=== PATIENT | male | born 1945 | race Caucasian/White ===

== ENCOUNTER 2019-06-09 21:55 | Inpatient (IN) | payer OTHER, SELFPAY ==
[2019-06-09 22:05] VITALS: BP 197/90; PULSE 81; RESP 19; TEMP 36.3; O2SAT 97; BMI 30.9
[2019-06-09 22:30] VITALS: BP 149/70; PULSE 80; RESP 18; O2SAT 99
[2019-06-09 22:39] LABS: Add Manual Diff / Slide Review NO; Basophils Absolute Auto 100 /uL (0-100); Basophils Percent Auto 1.6 % (0-2); Eosinophils Absolute Auto 0 /uL (0-450); Eosinophils Percent Auto 0.1 % (2-4); Hematocrit 39.4 % (41-53); Hemoglobin 13.3 g/dL (13.5-17.5); Lymphocytes Absolute Auto 300 /uL (1100-4500); Lymphocytes Percent Auto 4.4 % (25-40); Mean Corpuscular HGB Conc 33.7 % (30-36); Mean Corpuscular Hemoglobin 31.6 PG (26-34); Mean Corpuscular Volume 93.7 fL (80-100); Monocytes Absolute Auto 600 /uL (0-900); Monocytes Percent Auto 7.2 % (3-14); Neutrophils Absolute Auto 6800 /uL (1500-7000); Neutrophils Percent Auto 86.7 % (50-75); Platelet Count 226 X10^3/uL (150-400); Red Cell Distribution Width 13.4 % (11.6-14.8); White Blood Cell Count 7.8 X10^3/uL (4.5-11.0)
--- NOTE | 2019-06-09 22:41 | DI.RAD.S_ITS ---
PROCEDURE: XR ABDOMEN MIN 2V INDICATIONS: severe pain, bloating, known diverticulitis TECHNIQUE: 2 views of the abdomen were acquired. COMPARISON: [facility], CT, CT ABDOMEN PELVIS W CON, 06/09/2019, 23:35. FINDINGS: Surgical changes and devices: AICD and sternotomy wires partially visualized Scattered air-fluid levels are present. There are some prominent loops of bowel measuring up to 5.3 cm. No specific transition point seen. There is at least moderate stool Soft tissues: No masses; visualized solid organ contours appear normal in size. No suspicious abdominal calcifications. Diffuse spondylosis. Bilateral hip joint degeneration. IMPRESSION: Scattered air-fluid levels and mild gaseous distention of some bowel loops measuring up to 5 cm. No specific transition point. If the patient's symptoms do not improve, continued surveillance with abdominal series radiographs could be performed. Dictated by: Gregory Bravo M.D. on 06/10/2019 at 8:46 Approved by: Gregory Bravo M.D. on 06/10/2019 at 8:49
[2019-06-09 22:42] LABS: INR 1.4 (0.9-1.3); Prothrombin Time 16.7 SECONDS (10.1-12.7)
[2019-06-09 22:45] LABS: PTT Partial Thromboplastin Tim 29 SECONDS (26.4-36.2)
[2019-06-09 22:46] LABS: Alanine Aminotransferase 21 IU/L (<50); Albumin 3.4 g/dL (3.5-5.0); Alkaline Phosphatase 87 U/L (38-126); Aspartate Aminotransferase 32 IU/L (17-59); BUN Creatinine Ratio 17.7 (6-22); Bilirubin Total 0.7 mg/dL (0.2-1.3); Blood Urea Nitrogen 23 mg/dL (9-20); Calcium 8.3 mg/dL (8.4-10.2); Carbon Dioxide 24 mmol/L (22-32); Chloride 100 mmol/L (98-107); Estimated Glomerular Filt Rate 54.3 mL/min (>60); Globulin 3.3 g/dL (1.7-4.1); Glucose 307 mg/dL (80-110); HEMOLYSIS < 15 (0-50); Lipase 116 U/L (23-300); Sodium 135 mmol/L (137-145); Total Protein 6.7 g/dL (6.3-8.2)
[2019-06-09] MEDS: HYDROMORPHONE 0.5 MG INJ IV ×2 (22:49→23:13)
[2019-06-09] MEDS: SODIUM CHLORIDE 0.9% 1,000 ML 150 ML IV (22:49)
[2019-06-09] MEDS: ONDANSETRON 4 MG/2 ML INJ IV (22:49)
--- NOTE | 2019-06-09 23:33 | DI.CT.S_ITS ---
PROCEDURE: CT ABDOMEN PELVIS W CON INDICATIONS: severe pain, distension TECHNIQUE: After the administration of intravenous contrast, 5 mm thick sections acquired from the diaphragm to the symphysis. 5 mm coronal and sagittal reformats were acquired. For radiation dose reduction, the following was used: automated exposure control, adjustment of mA and/or kV according to patient size. COMPARISON: [facility], CT, CT ABDOMEN PELVIS WITH CONTRAST, 06/06/2019, 1:06. FINDINGS: Image quality: Excellent. ABDOMEN: Lung bases: Lung bases are clear. Heart size is normal. Coronary artery calcifications. Solid organs: Liver is normal in size and enhancement. Gallbladder is unremarkable. Biliary system is non dilated. Pancreas enhances normally. Spleen is normal in size and enhancement. No adrenal nodules. Kidneys demonstrate normal size and enhancement, without hydronephrosis. Peritoneum and bowel: The previous spherical structure in the left mid to lower abdomen, which previously had a large amount of feculent material has now changed to a predominantly fluid-filled structure with extensive surrounding inflammatory change. It measures approximately 4.5 cm. Findings are consistent with acute diverticulitis of a very large jejunal diverticulum. Some thickening of the wall of the adjacent distal left colon and proximal sigmoid colon has developed secondary to adjacent inflammatory change. There is now a small amount of free fluid. No free air. A second large jejunal diverticulum is also again identified. Scattered sigmoid diverticuli. Nodes and vessels: No retroperitoneal or mesenteric adenopathy by size criteria. Aorta and inferior vena cava are normal in size. Extensive atherosclerotic calcifications. Miscellaneous: No ventral hernias. PELVIS: Genitourinary: Bladder wall thickness is normal. Miscellaneous: No inguinal hernias or adenopathy. Bones: No suspicious bony lesions. No vertebral body compression fractures. IMPRESSION: 1. Interval liquefaction of feculent material within what appears to be a very large jejunal diverticulum, with significant progression of surrounding inflammatory change and development of mild ascites. Findings are consistent with jejunal diverticulitis. 2. Coronary artery disease, peripheral atherosclerosis. Comment: Final report is concordant with preliminary interpretation provided by [facility]. Dictated by: Vinod Handley M.D. on 06/10/2019 at 7:38 Approved by: Vinod Handley M.D. on 06/10/2019 at 7:51
[2019-06-09 23:40] VITALS: BP 171/81; PULSE 94; RESP 17; O2SAT 98
[2019-06-09] MEDS: LIDOCAINE 1% (PF) 2 ML (23:40)
[2019-06-10] VITALS (31 sets, daily range): BP systolic 100–194; BP diastolic 58–84; PULSE 84–108; RESP 16–24; TEMP 36.4–37.8; O2SAT 90–99; BMI 30.4; BMI 30.8
--- NOTE | 2019-06-10 | PATH_ITS ---
[facility] Accession Number: [id number] . 01 Material submitted: . small bowel - PORTION SMALL BOWEL . 02 Diagnosis: Small Bowel, Segmental Resection: Segment of small bowel with the following features: Two diverticula lined with small bowel-type mucosa. Patchy mucosal ischemic changes and ulcers involving one of two diverticula. Marked serositis, consistent with perforation. Negative for dysplasia or malignancy. MRV 06/15/2019 1412 Local . 02 Electronically signed: . Miguel Beauchamp MD, PhD, Pathologist NPI- [id number] . 01 Gross description: . Received in formalin, labeled portion small bowel, is an unoriented segment of small bowel (length-13.3 cm, resection margin #1 diameter-4.2 cm, resection margin #2 diameter-3.5 cm) with attached mesentery (up to 2.5 cm in depth). The resection margins are received stapled. The serosa is parsons-pink and predominantly covered in parsons-chiu flaky friable exudate. The mucosa is chiu with normal folds and contains a diverticulum (3.5 x 2.5 x 2.5 cm) located 38 cm from resection margin #1 and 9.2 cm from resection margin #2. A second diverticulum (4.5 x 3.5 x 2.5 cm) is identified 7.5 cm from the first diverticulum and 3.5 cm from resection margin #2. The second diverticulum is perforated. No nodules or masses are identified. The resection margins are inked blue. Section code: (A1) resection margin #1, longitudinal union contract representative; (A2) resection margin #2, longitudinal union contract representative; (A3) union contract representative serial section between resection margin #1 and the first diverticulum, adjacent to the diverticulum; (A4-A7) diverticulum #1, union contract representative; (A8) union contract representative serial section between the diverticula, adjacent to the second diverticulum; (A9-A12) diverticulum #2, union contract representative; (A13) union contract representative serial section between the second diverticulum and resection margin #2, adjacent to the diverticulum. ([id number]) /MRV 06/12/2019 0849 Local . 02 Pathologist provided ICD-10: K63.1, K57.00, K65.9 . 02 CPT . 732438 Performed at: 01 [facility] [address] [place] [address], [place], [place] [id number] MD Wilton Quispe MD Phone: [phone] Performed at: 02 [facility] [address] [place] [id number] MD Emy Garza MD Phone: [phone]
--- NOTE | 2019-06-10 00:16 | PC.NURSE ---
1. Pt's medication reconciled to the best of my ability. Pt / do not know medications. [facility] records are incomplete. agrees to bring home meds to hospital at earliest convenience to compare. 2. On CT, bladder is very distended. Pt states he does not feel as if he needs to void. Dr. You ordered porter cath for acute urinary retention.
[2019-06-10] MEDS: HYDROMORPHONE 0.5 MG INJ IV ×2 (00:18→06:13)
[2019-06-10] MEDS: LIDOCAINE 2% (UROJET) 5 ML GEL TOP (00:29)
--- NOTE | 2019-06-10 00:40 | PC.NURSE ---
upon porter placement 750 cc of medium color urine out.
[2019-06-10 00:55] LABS: RBC Urine 0-1/HPF (0-5/HPF)
[2019-06-10 00:56] LABS: Amorphous Sediment Urine 1+; Bacteria Urine Occasional (0-1); Granular Casts Urine 0-1/LPF; Hyaline Casts Urine 1-5/LPF; Squamous Epithelial Cell Urine 0-1 /HPF (0-5/HPF); WBC Urine 0-1/HPF (0-5/HPF)
[2019-06-10 00:57] LABS: Culture Indicated Urine Specimen Cultured
[2019-06-10] MEDS: PIPERACILLIN-TAZO 4.5 GM/100 ML FROZ.PIGGY IV ×4 (01:04→17:16)
--- NOTE | 2019-06-10 01:57 | ED_ITS ---
HPI - Abdominal Pain General Chief Complaint: Abdominal Pain Stated Complaint: Lower Abd Pain Time Seen by Provider: 06/09/19 22:02 Source: patient and family Mode of arrival: Wheelchair Limitations: no limitations History of Present Illness HPI narrative: 74-year-old male nonsmoker with extensive cardiac history pr esents with his in the chief complaint of a sudden onset severe abdominal pain with distention and nausea this afternoon. Patient had been admitted over the course of the weekend at an outside facility with a diagnosis of diverticulitis. He had been taking Levaquin and Flagyl as he was while in the hospital and was slowly advancing his diet. He denies any chest pain or shortness of breath. He is not dizzy nor weak or lightheaded. His pain is severe and worsens with motion and improves with rest. He denies any dysuria, frequency or urgency. He admits to passing gas and had a bowel movement this morning. MD complaint: abdominal pain Onset (ago): hour(s) Pain Consistency: constant Location: diffuse Severity: severe Quality: cramping, stabbing and sharp Radiation: none Relieving factors: rest Exacerbating factors: movement Context: recent antibiotic use Related Data Home Medications Medication Instructions Recorded Confirmed atorvastatin 40 mg PO DAILY 06/09/19 06/09/19 levothyroxine 75 mcg PO QAM 06/09/19 06/09/19 metoprolol succinate 50 mg PO DAILY 06/09/19 06/09/19 insulin glargine 20 unit SUBCUT BEDTIME 06/10/19 06/10/19 insulin lispro 0 - 12 unit SUBCUT TID 06/10/19 06/10/19 insulin lispro 0 - 5 unit SUBCUT BEDTIME 06/10/19 06/10/19 levofloxacin [Levaquin] 500 mg PO DAILY 06/10/19 06/10/19 metronidazole [Flagyl] 500 mg PO TID 06/10/19 06/10/19 Allergies Allergy/AdvReac Type Severity Reaction Status Date / Time amiodarone Allergy Verified 06/09/19 22:09 Review of Systems Constitutional Constitutional: Denies chills, Denies fatigue, Denies fever(s), Denies frequent falls, Denies lethargy and Denies weakness Eyes Eyes: Denies change in vision, Denies eye discharge, Denies irritation and Denies loss of vision ENT Ears, Nose, Mouth, and Throat: Denies change in voice, Denies dizziness, Denies neck pain, Denies sore throat and Denies throat swelling Cardiovascular Cardiovascular: Denies chest pain, Denies irregular heart rhythm, Denies ligh theadedness, Denies palpitations, Denies dyspnea, Denies dyspnea on exertion and Denies orthopnea Respiratory Respiratory: Denies cough, Denies dyspnea, Denies dyspnea on exertion and Denies wheezing Gastrointestinal Gastrointestinal: Reports abdominal pain, Denies change in bowel habits, Denies diarrhea, Denies nausea and Denies vomiting Genitourinary Genitourinary: Denies hematuria, Denies flank pain, Denies urinary incontinence and Denies urinary urgency Musculoskeletal Musculoskeletal: Denies back pain, Denies muscle weakness, Denies neck pain, Denies numbness and Denies tingling Integumentary/Breasts Skin/Breast: Denies pruritus, Denies erythema, Denies rash and Denies wounds Neurologic Neurologic: Denies behavioral changes, Denies confusion, Denies dizziness, Denies frequent falls, Denies loss of vision, Denies numbness, Denies tingling and Denies weakness Psychiatric Psychiatric: Denies anxiety, Denies behavioral changes, Denies confusion, Denies depression, Denies homicidal ideation and Denies suicidal ideation Endocrine Endocrine: Denies fatigue, Denies flushing and Denies palpitations Hematologic/Lymphatic Hematologic/Lymphatic: Denies easy bruising Allergic/Immunologic Allergic/Immunologic: Denies urticaria, Denies throat swelling and Denies wheezing Patient History Medical History Diabetes (Acute) High cholesterol (Acute) Hypertension (Acute) Hypothyroid (Acute) Presence of combination internal cardiac defibrillator (ICD) and pacemaker (Acute 07/10/15) Stage 3 chronic kidney disease (Acute) Social History household members: spouse Smoking Status: Never smoker Smoking Status: Never smoker alcohol intake frequency: a few times a week Substance Use Type: does not use Exam Narrative Exam Narrative: GENERAL: [74] year old patient appears stated age. Well- nourished, well-developed patient, in mild distress. HEAD: Atraumatic. Normocephalic. EYES: Pupils equal round and reactive. Extraocular motions intact. No scleral icterus. No injection or drainage. ENT: Nose without bleeding, purulent drainage. Throat without erythema, tonsillar hypertrophy or exudate. Airway patent. NECK: Trachea midline. Non tender CARDIOVASCULAR: Regular rate and rhythm without murmurs, gallops, or rubs. RESPIRATORY: Clear to auscultation. Breath sounds equal bilaterally. No wheezes, rales, or rhonchi. GASTROINTESTINAL: Distended abdomen with decreased bowel sounds, quite tender to palpation in all 4 quadrants, peritoneal signs present EXTREMITIES: No edema or joint tenderness. BACK: Nontender without deformity or crepitance. No flank tenderness. NEURO: AOx3. SKIN: No rash or erythema of visible areas Initial Vital Signs Initial Vital Signs: Vital Signs Temperature 97.4 F L 06/09/19 22:05 Pulse Rate 81 06/09/19 22:05 Respiratory Rate 19 06/09/19 22:05 Blood Pressure 197/90 H 06/09/19 22:05 Pulse Oximetry 97 06/09/19 22:05 Course Course Course Narrative: Early call to on-call surgeon after palpation of a surgical abdomen. We discuss early evaluation and with very reassuring labs their request for CT is made. Orders Ordered: ED Orders 06/09/19 22:23 Complete Blood Count AUTO DIFF Stat Comprehensive Metabolic Panel Stat Lactate (Lactic Acid) Stat Lipase Stat Partial Thromboplastin Time Stat Prothrombin Time INR Stat 06/09/19 22:41 XR abdomen min 2V Stat 06/09/19 22:56 Blood Culture Stat 06/09/19 23:33 CT abdomen pelvis w con Stat 06/10/19 00:31 Urine Culture Stat Urine Microscopic Stat Hydromorphone HCl (Dilaudid) 0.5 mg IV Q4HR PRN PRN Reason: Pain, Severe (7-10) Sodium Chloride (Normal Saline 0.9%) 1,000 mls @ 125 mls/hr IV CONT BRIAN Ondansetron HCl (Zofran) 4 mg IV Q4HR PRN PRN Reason: Nausea And Vomiting Last Admin: 06/09/19 22:49 Dose: 4 mg Documented by: LEOBARDO Ondansetron HCl (Zofran) 4 mg IV Q4HR PRN PRN Reason: Nausea And Vomiting Discontinued Medications Hydromorphone HCl (Dilaudid) 0.5 mg IV NOW ONE Stop: 06/09/19 22:42 Last Admin: 06/09/19 22:49 Dose: 0.5 mg Documented by: LEOBARDO Hydromorphone HCl (Dilaudid) 0.5 mg IV NOW ONE Stop: 06/09/19 23:10 Last Admin: 06/09/19 23:13 Dose: 0.5 mg Documented by: LEOBARDO Hydromorphone HCl (Dilaudid) 0.5 mg IV NOW ONE Stop: 06/10/19 00:13 Last Admin: 06/10/19 00:18 Dose: 0.5 mg Documented by: LEOBARDO Sodium Chloride (Normal Saline 0.9%) 1,000 mls @ 150 mls/hr IV CONT BRIAN Last Infusion: 06/10/19 01:16 Dose: 150 mls/hr Documented by: Admin: 06/09/19 22:49 Dose: 150 mls/hr Documented by: LEOBARDO Piperacillin/Tazobactam/Dextrose (Zosyn) 4.5 gm in 100 mls @ 200 mls/hr IV NOW ONE Stop: 06/10/19 01:12 Last Infusion: 06/10/19 01:17 Dose: 200 mls/hr Documented by: Admin: 06/10/19 01:04 Dose: 200 mls/hr Documented by: LEOBARDO Insulin Human Regular (Humulin R) 5 unit SUBCUT NOW ONE Stop: 06/10/19 01:35 Lidocaine HCl (Urojet) 5 ml TOP NOW ONE Stop: 06/10/19 00:18 Last Admin: 06/10/19 00:29 Dose: 5 ml Documented by: LEOBARDO Vital Signs Vital signs: Vital Signs - 8 hr 06/09/19 22:05 06/09/19 22:30 06/09/19 23:40 Temperature 97.4 F L Pulse Rate 81 80 94 H Respiratory Rate 19 18 17 Blood Pressure 197/90 H Blood Pressure [Left Arm] 149/70 H 171/81 H Pulse Oximetry 97 99 98 06/10/19 00:10 06/10/19 00:41 Temperature Pulse Rate 96 H 97 H Respiratory Rate 18 Blood Pressure Blood Pressure [Left Arm] 194/81 H 163/73 H Pulse Oximetry 99 MDM - Abdominal Pain Lab Data Result diagrams: 06/09/19 22:23 06/09/19 22:23 Labs: Lab Results 06/09/19 06/09/19 06/09/19 Range/Units 22:23 22:23 22:23 WBC 7.8 (4.5-11.0) X10^3/uL RBC 4.20 L (4.5-5.9) X10^6/uL Hgb 13.3 L (13.5-17.5) g/dL Hct 39.4 L (41-53) % MCV 93.7 (80-100) fL MCH 31.6 (26-34) PG MCHC 33.7 (30-36) % RDW 13.4 (11.6-14.8) % Plt Count 226 (150-400) X10^3/uL Neut % (Auto) 86.7 H (50-75) % Lymph % (Auto) 4.4 L (25-40) % Blanco % (Auto) 7.2 (3-14) % Eos % (Auto) 0.1 L (2-4) % Baso % (Auto) 1.6 (0-2) % Neut # (Auto) 6800 (5018-6626) /uL Lymph # (Auto) 300 L (4248-2660) /uL Blanco # (Auto) 600 (0-900) /uL Eos # (Auto) 0 (0-450) /uL Baso # (Auto) 100 (0-100) /uL PT 16.7 H (10.1-12.7) SECONDS INR 1.4 H (0.9-1.3) APTT 29 (26.4-36.2) SECONDS Sodium 135 L (137-145) mmol/L Potassium 4.0 (3.4-5.1) mmol/L Chloride 100 (98-107) mmol/L Carbon Dioxide 24 (22-32) mmol/L BUN 23 H (9-20) mg/dL Creatinine 1.30 H (0.66-1.25) mg/dL Estimated GFR 54.3 L (>60) mL/min BUN/Creatinine Ratio 17.7 (6-22) Glucose 307 H (80-110) mg/dL Lactate (0.7-2.1) mmol/L Calcium 8.3 L (8.4-10.2) mg/dL Total Bilirubin 0.7 (0.2-1.3) mg/dL AST 32 (17-59) IU/L ALT 21 (<50) IU/L Alkaline Phosphatase 87 (38-126) U/L Total Protein 6.7 (6.3-8.2) g/dL Albumin 3.4 L (3.5-5.0) g/dL Globulin 3.3 (1.7-4.1) g/dL Albumin/Globulin Ratio 1.0 (1.0-2.8) Lipase 116 (23-300) U/L Urine RBC (0-5/HPF) Urine WBC (0-5/HPF) Ur Squamous Epith Cells (0-5/HPF) Amorphous Sediment Urine Bacteria (None) Hyaline Casts (None) Granular Casts (None) Ur Culture Indicated? 06/09/19 06/10/19 Range/Units 22:23 00:31 WBC (4.5-11.0) X10^3/uL RBC (4.5-5.9) X10^6/uL Hgb (13.5-17.5) g/dL Hct (41-53) % MCV (80-100) fL MCH (26-34) PG MCHC (30-36) % RDW (11.6-14.8) % Plt Count (150-400) X10^3/uL Neut % (Auto) (50-75) % Lymph % (Auto) (25-40) % Blanco % (Auto) (3-14) % Eos % (Auto) (2-4) % Baso % (Auto) (0-2) % Neut # (Auto) (7845-3976) /uL Lymph # (Auto) (3684-3375) /uL Blanco # (Auto) (0-900) /uL Eos # (Auto) (0-450) /uL Baso # (Auto) (0-100) /uL PT (10.1-12.7) SECONDS INR (0.9-1.3) APTT (26.4-36.2) SECONDS Sodium (137-145) mmol/L Potassium (3.4-5.1) mmol/L Chloride (98-107) mmol/L Carbon Dioxide (22-32) mmol/L BUN (9-20) mg/dL Creatinine (0.66-1.25) mg/dL Estimated GFR (>60) mL/min BUN/Creatinine Ratio (6-22) Glucose (80-110) mg/dL Lactate 1.0 (0.7-2.1) mmol/L Calcium (8.4-10.2) mg/dL Total Bilirubin (0.2-1.3) mg/dL AST (17-59) IU/L ALT (<50) IU/L Alkaline Phosphatase (38-126) U/L Total Protein (6.3-8.2) g/dL Albumin (3.5-5.0) g/dL Globulin (1.7-4.1) g/dL Albumin/Globulin Ratio (1.0-2.8) Lipase (23-300) U/L Urine RBC 0-1/hpf (0-5/HPF) Urine WBC 0-1/hpf (0-5/HPF) Ur Squamous Epith Cells 0-1 /hpf (0-5/HPF) Amorphous Sediment 1+ Urine Bacteria Occasional (0-1) (None) Hyaline Casts 1-5/lpf (None) Granular Casts 0-1/lpf (None) Ur Culture Indicated? Specimen cultured Point of care testing: Point of Care Testing Glucose POC 248 Urine Dip Bedside Urine Glucose Negative Bedside Urine Bilirubin + 1 Bedside Urine Ketone + 15 Urine Specific [place] 1.015 Bedside Urine Occult Blood - Negative Bedside Urine pH 5.5 Bedside Urine Protein + 30 Bedside Urine Urobilinogen +/- 1mg Bedside Urine Nitrite - Negative Bedside Urine Leukocytes + 70 Esterase Imaging Data Abdominal x-ray: Attestation: I personally reviewed and interpreted this imaging study as follows: My Impression: Multiple air-fluid levels, bowel obstruction. Stool in descending colon with contrast noted and little to no air in colon CT scan - abdomen/pelvis: Radiologist's Impression: 4.4 cm abscess left mid abdomen with inflammation. Ileus versus small bowel obstruction at site of abscess MDM Narrative Medical decision making narrative: Patient continues to be NPO, as improvement of symptoms after NG and allotted period extensive discussion with patient and family at the bedside and they understand the plan for surgical intervention later this morning. Discharge Plan Departure Patient Disposition: Admitted As Inpatient Clinical Impression: Abscess of intestine Bowel obstruction Qualifiers: Intestinal obstruction type: unspecified Intestinal obstruction extent: unspecified extent Qualified Code(s): K56.609 - Unspecified intestinal obstruction, unspecified as to partial versus complete obstruction Admit Date/Time: 06/10/19 00:46 Admit Provider: Leighton Mcduffie
[2019-06-10] MEDS: INSULIN REGULAR 100 UNIT/ML 3 ML VIAL SUBCUT (02:41)
[2019-06-10] MEDS: HYDROMORPHONE 2 MG INJ 0.5 MG IV (02:43)
[2019-06-10] MEDS: SODIUM CHLORIDE 0.9% 1,000 ML 125 ML IV ×3 (02:46→11:00)
--- NOTE | 2019-06-10 04:15 | PC.ADMIT ---
834 [facility] Admission Note: Pt arrived to unit without issues. 1pa to bed from [facility]. at bedside with patient. Pt reports pain resolved with giving IV dilaudid. NGT started at intermittent suction, light brown fluids being suctioned out. O2 sats running at 91% on RA. Resumed 2L O2 and o2 sats upto 97%. Pt has no complaints at this time. Admission info received from patient and patient spouse. The patient,Pedro Frye,74 y/o, was given written information regarding hospital policies, unit procedures and contact persons. Patient's smoking status: Never smoker. Vital Signs - 8 hr 06/09/19 22:05 06/09/19 22:30 06/09/19 23:40 Temperature 97.4 F L Pulse Rate 81 80 94 H Respiratory Rate 19 18 17 Blood Pressure 197/90 H Blood Pressure [Left Arm] 149/70 H 171/81 H Pulse Oximetry 97 99 98 06/10/19 00:10 06/10/19 00:41 06/10/19 00:58 Temperature Pulse Rate 96 H 97 H Respiratory Rate 18 Blood Pressure Blood Pressure [Left Arm] 194/81 H 163/73 H Pulse Oximetry 99 90 L 06/10/19 01:40 Temperature 98.2 F Pulse Rate 95 H Respiratory Rate 23 Blood Pressure 145/84 H Blood Pressure [Left Arm] Pulse Oximetry 96
--- NOTE | 2019-06-10 05:32 | PM.HP.1 ---
History of Present Illness History of Present Illness Date Patient Seen: 06/10/19 Time Patient Seen: 05:32 Chief complaint: Lower Abd Pain Narrative: 74-year-old white male with sudden onset of severe abdominal pain a few hours after discharge from [facility] where he was being treated for diverticulitis. Patient has had abdominal pain for a week and was admitted to [facility] about 6 days ago and was treated with intravenous Levaquin and Flagyl for acute diverticulitis. He felt well enough to go home yesterday but when he arrived home he developed severe mid abdominal pain and came to our emergency room late last night. I was called at 1:00 a.m. this morning where he had CT scan evidence of a mid abdominal abscess creating a small bowel obstruction. There is no sign of free perforation of the colon at this time based on imaging. The patient does have a history of coronary artery bypass 4 years ago. At that time he had a pacemaker defibrillator implanted. Has never use the defibrillator. Is also an insulin-dependent diabetic and uses 20 units of the Lantus at home daily. He occasionally supplements is Lantus with regular insulin. Patient is also on statin and beta blocked with metoprolol 50 mg a day. Patient History Medical History Diabetes (Acute) High cholesterol (Acute) Hypertension (Acute) Hypothyroid (Acute) Presence of combination internal cardiac defibrillator (ICD) and pacemaker (Acute 07/10/15) Stage 3 chronic kidney disease (Acute) Family & Social History Social History: household members spouse Prior Living Arrangements House Safety & Behavioral: Feels Safe in Current Yes Environment Been Physically Hurt or No Threatened By a Person Suicidal Ideation Description None Suicide Plan Description No Plan Tobacco & Substance use: Smoking Status Never smoker alcohol intake frequency a few times a week Substance Use Type does not use Meds Home Medications and Allergies Home Medications Medication Instructions Recorded Confirmed Type atorvastatin 40 mg PO DAILY 06/09/19 06/09/19 History levothyroxine 75 mcg PO QAM 06/09/19 06/09/19 History metoprolol succinate 50 mg PO DAILY 06/09/19 06/09/19 History insulin glargine 20 unit SUBCUT BEDTIME 06/10/19 06/10/19 History insulin lispro 0 - 12 unit SUBCUT TID 06/10/19 06/10/19 History insulin lispro 0 - 5 unit SUBCUT BEDTIME 06/10/19 06/10/19 History levofloxacin [Levaquin] 500 mg PO DAILY 06/10/19 06/10/19 History metronidazole [Flagyl] 500 mg PO TID 06/10/19 06/10/19 History Allergies Allergy/AdvReac Type Severity Reaction Status Date / Time amiodarone Allergy Verified 06/09/19 22:09 Review of Systems Review of Systems ROS: Yes All systems reviewed with the patient and are negative except as otherwise documented Exam Vital Signs (past 8 hours): - 06/09/19 22:05 06/09/19 22:30 06/09/19 23:40 Temperature 97.4 F L Pulse Rate 81 80 94 H Respiratory Rate 19 18 17 Blood Pressure 197/90 H Blood Pressure [Left Arm] 149/70 H 171/81 H Pulse Oximetry 97 99 98 06/10/19 00:10 06/10/19 00:41 06/10/19 00:58 Temperature Pulse Rate 96 H 97 H Respiratory Rate 18 Blood Pressure Blood Pressure [Left Arm] 194/81 H 163/73 H Pulse Oximetry 99 90 L 06/10/19 01:40 06/10/19 04:35 Temperature 98.2 F 97.6 F Pulse Rate 95 H 96 H Respiratory Rate 23 24 Blood Pressure 145/84 H 141/84 H Blood Pressure [Left Arm] Pulse Oximetry 96 94 Oxygen Delivery Method Nasal Cannula Oxygen Flow Rate 2 Narrative Exam Narrative: Patient is alert and oriented resting in bed with moderate abdominal pain at this time. Ears nose and throat are unremarkable Lungs are clear with no rales or wheezes Heart regular rhythm no murmur Abdomen is distended. No palpable masses. He has exquisite mid abdominal and left lower quadrant tenderness. There is some rebound in the mid abdomen. Objective Labs Result Diagrams: 06/09/19 22:23 06/09/19 22:23 Labs: Laboratory Results - last 24 hr 06/09/19 06/09/19 06/09/19 22:23 22:23 22:23 WBC 7.8 RBC 4.20 L Hgb 13.3 L Hct 39.4 L MCV 93.7 MCH 31.6 MCHC 33.7 RDW 13.4 Plt Count 226 Neut % (Auto) 86.7 H Lymph % (Auto) 4.4 L [place] % (Auto) 7.2 Eos % (Auto) 0.1 L Baso % (Auto) 1.6 Neut # (Auto) 6800 Lymph # (Auto) 300 L [place] # (Auto) 600 Eos # (Auto) 0 Baso # (Auto) 100 PT 16.7 H INR 1.4 H APTT 29 Sodium 135 L Potassium 4.0 Chloride 100 Carbon Dioxide 24 BUN 23 H Creatinine 1.30 H Estimated GFR 54.3 L BUN/Creatinine Ratio 17.7 Glucose 307 H Lactate Calcium 8.3 L Total Bilirubin 0.7 AST 32 ALT 21 Alkaline Phosphatase 87 Total Protein 6.7 Albumin 3.4 L Globulin 3.3 Albumin/Globulin Ratio 1.0 Lipase 116 Urine RBC Urine WBC Ur Squamous Epith Cells Amorphous Sediment Urine Bacteria Hyaline Casts Granular Casts Ur Culture Indicated? 06/09/19 06/10/19 22:23 00:31 WBC RBC Hgb Hct MCV MCH MCHC RDW Plt Count Neut % (Auto) Lymph % (Auto) [place] % (Auto) Eos % (Auto) Baso % (Auto) Neut # (Auto) Lymph # (Auto) [place] # (Auto) Eos # (Auto) Baso # (Auto) PT INR APTT Sodium Potassium Chloride Carbon Dioxide BUN Creatinine Estimated GFR BUN/Creatinine Ratio Glucose Lactate 1.0 Calcium Total Bilirubin AST ALT Alkaline Phosphatase Total Protein Albumin Globulin Albumin/Globulin Ratio Lipase Urine RBC 0-1/hpf Urine WBC 0-1/hpf Ur Squamous Epith Cells 0-1 /hpf Amorphous Sediment 1+ Urine Bacteria Occasional (0-1) Hyaline Casts 1-5/lpf Granular Casts 0-1/lpf Ur Culture Indicated? Specimen cultured Assessment & Plan Assessment & Plan narrative: Patient with recent acute sigmoid diverticulitis now presents with a mid abdominal abscess and small bowel obstruction. There is no sign of free perforation of the sigmoid on his CT scan. My plan is to explore his abdomen drain the abscess resolve the small-bowel obstruction and as I explained to the patient and his possibly remove that sigmoid colon however if it is not obviously leaking not remove it at this time. Hopefully this would avoid a colostomy. Patient and his understand and agree. My plan is to turn off the pacemaker defibrillator with a magnet during surgery. Patient is aware of that as well. Quality VTE Deep Vein Thrombosis/Pulmonary Embolism Present on Admission: No
--- NOTE | 2019-06-10 06:16 | PC.NURSE ---
0.5 dilaudid given for breakthrough pain of 5/10 per MD order. Surgery consent signed with Dr Mcduffie 150ml brown output from NGT 0615 - Pt off unit for surgery
--- NOTE | 2019-06-10 07:06 | SUR.OPER ---
Supine on padded OR bed, head on pillow, arms secured on padded arm boards at <90 degrees abduction, legs uncrossed, safety belt at thigh, tape over blanket over lower legs.
[2019-06-10] MEDS: BACITRACIN OINT 0.9 GM PCKT 1 APPLIC TOP (07:27)
--- NOTE | 2019-06-10 08:48 | PM.OP.1 ---
Operative Date/Time/Diagnoses Date of procedure: 06/10/19 Time of procedure: 08:48 Pre-op diagnosis: Bowel obstruction secondary to mid abdominal abscess Post-op diagnosis: other (Perforated mid jejunal Meckel's diverticulum with diffuse severe peritonitis) Procedure & Clinicians Procedure: Exploratory laparotomy mid jejunal small bowel resection with primary anastomosis extensive abdominal lavage Same procedure as scheduled: No (As above) Surgeon: Leighton Alba Yes if Unassisted: Yes Anesthesia Type: General Operative Notes Findings: Diffuse generalized peritonitis with purulence throughout the abdominal cavity. Enormous golfball sized perforation of the mid jejunal Meckel's diverticulum, Closure Type: primary Specimen(s): other (Jejunal segment with 2 Meckel's diverticuli 1 perforated) Estimated Blood Loss (mL): 100 Blood products transfused: none Procedure in detail: The patient was properly identified during surgical pause under general endotracheal anesthesia. He was prepped and draped in a sterile fashion exposure of the mid abdomen. Midline incision is made the abdomen explored patient had diffuse purulence peritonitis with pus and undigested food scattered throughout his abdominal cavity eviscerated and the small bowel revealed any Niraj is perforated Meckel's diverticulum. The hole in the jejunum would admit a golf ball. Patient actually had a 2nd Meckel's or jejunal diverticulum adjacent but it was not perforated. After extensive abdominal lavage to clear the peritonitis and obtaining cultures then I addressed the perforated jejunum. Proximal and distal areas of normal jejunum were divided encompassing the 2 diverticuli and of course the perforation. This was done using ANDREE stapler. Intervening mesentery was taken down and ligated with 2 0 Vicryl ligatures. There was excellent hemostasis. A side to side functional end and jejunal anastomosis carried out with a ANDREE stapler and the intervening enterotomy is closed with a TA 60. Further reinforcement of the anastomosis was done with 3 0 interrupted seromuscular silks. The mesenteric defect was closed met with running 3 0 Vicryl sutures for a meticulous closure. The abdominal cavity further irrigated with bacitracin saline. Viscera returned to its anatomic position after I completely explored the small bowel from ligament of Treitz to the ileocecal valve. Small bowel was covered with the omentum and the abdominal wall closed with 1. PDS. The subcu was irrigated. The skin was loosely closed with jeanette. Sterile dressing applied he tolerated the procedure very well. Complications: none Post-operative Condition: stable Disposition: PACU
[2019-06-10] MEDS: HYDROMORPHONE 2 MG INJ IV (09:05)
--- NOTE | 2019-06-10 09:28 | SUR.PHASEI ---
pt arrived to PACU awake and alert. pt was in st pt has NG tube to low intermittant suction. Pt denies much pain. Dr. Stovall
--- NOTE | 2019-06-10 09:44 | SUR.PHASEI ---
Dr. Stovall in to see pt. pt and he instructed RN to pull out NG tube. Which RN did. Talked to Dr. Stovall and informed him of pt's low urine output.
--- NOTE | 2019-06-10 12:02 | PM.CN ---
History of Present Illness Consult details Date Patient Seen: 06/10/19 Time Patient Seen: 12:02 Chief complaint: Lower Abd Pain Reason for consult: Medical assistance with diabetes, CAD s/p emergent surgery Requesting provider: Leighton Mcduffie Narrative: Pedro Frye is a 74 year old male with PMH of DM, HTN, HLD, hypothyroid, and CAD (s/p CABG w/ pacemaker / defibrillator) who presented with severe abdominal pain and distension yesterday. He was recently admitted to an outside facility for diverticulitis and was discharged on oral antibiotics. In the ED, he had a CT which showed a mid abdominal abscess which created an SBO per surgery. He went to the OR early this morning and underwent an exploratory laparotomy with mid jejunal small bowel resection with primary anastomosis extensive abdominal lavage. Medicine was consulted for assistance with management of his medical co-morbidities including CAD and DM. He denies any recent chest pain, shortness of breath, lower extremity edema, dyspnea on exertion, orthopnea. [facility], he does not recall his most recent A1c, and he says his blood sugars are widely varied depending on what he eats. He currently endorses abdominal pain, fairly controlled and he is states that he does feel better after his surgery. He denies any nausea or vomiting currently. He denies any recent fevers or chills. Meds Home Medications and Allergies Home Medications Medication Instructions Recorded Confirmed Type atorvastatin 40 mg PO DAILY 06/09/19 06/09/19 History levothyroxine 75 mcg PO QAM 06/09/19 06/09/19 History metoprolol succinate 50 mg PO DAILY 06/09/19 06/09/19 History insulin glargine 20 unit SUBCUT BEDTIME 06/10/19 06/10/19 History insulin lispro 0 - 12 unit SUBCUT TID 06/10/19 06/10/19 History insulin lispro 0 - 5 unit SUBCUT BEDTIME 06/10/19 06/10/19 History levofloxacin [Levaquin] 500 mg PO DAILY 06/10/19 06/10/19 History lisinopril 20 mg PO DAILY 06/10/19 06/10/19 History metformin 500 mg PO BID 06/10/19 06/10/19 History metronidazole [Flagyl] 500 mg PO TID 06/10/19 06/10/19 History Allergies Allergy/AdvReac Type Severity Reaction Status Date / Time amiodarone Allergy Verified 06/09/19 22:09 Review of Systems Review of Systems Narrative: All other systems reviewed with the patient and are negative unless otherwise stated. Exam Vital Signs (past 8 hours): - 06/10/19 04:35 06/10/19 08:31 06/10/19 08:36 Temperature 97.6 F 97.7 F Pulse Rate 96 H 102 H 100 H Respiratory Rate 24 20 24 Blood Pressure 141/84 H 154/62 H 131/64 Pulse Oximetry 94 98 98 06/10/19 08:41 06/10/19 08:54 06/10/19 08:59 Temperature Pulse Rate 97 H 91 H 89 Respiratory Rate 20 20 20 Blood Pressure 108/62 121/66 107/63 Pulse Oximetry 99 99 97 06/10/19 09:08 06/10/19 09:16 06/10/19 09:22 Temperature Pulse Rate 87 86 87 Respiratory Rate 18 18 20 Blood Pressure 114/59 L 100/62 109/61 Pulse Oximetry 97 97 97 06/10/19 09:27 06/10/19 09:41 06/10/19 09:52 Temperature Pulse Rate 89 85 84 Respiratory Rate 18 22 20 Blood Pressure 109/61 109/61 101/64 Pulse Oximetry 96 97 97 06/10/19 10:00 06/10/19 10:49 Temperature 97.9 F Pulse Rate 86 86 Respiratory Rate 18 20 Blood Pressure 126/63 133/63 Pulse Oximetry 96 98 Oxygen Delivery Method Nasal Cannula Oxygen Flow Rate 3 Narrative Exam Narrative: GENERAL APPEARANCE: Well developed, well nourished, elderly male in no acute distress. Comfortable appearing. SKIN: Inspection of the skin reveals no rashes, ulcerations or petechiae. HEENT: The sclerae were anicteric and conjunctivae were pink and moist. Extraocular movements were intact and pupils were equal, round with normal accommodation. External inspection of the ears and nose showed no scars, lesions, or masses. Lips, teeth, and gums showed normal mucosa. The oral mucosa, hard and soft palate, tongue and posterior pharynx were unremarkable. NECK: Supple and symmetric. There was no thyroid enlargement, and no tenderness, or masses were felt. CHEST: Normal AP diameter and normal contour without any kyphoscoliosis. LUNGS: Auscultation of the lungs revealed no wheezes, rhonchi, or rales. CARDIOVASCULAR: There was a regular rate and rhythm without any murmurs, gallops, rubs. Peripheral pulses were 2+ and symmetric. ABDOMEN: Soft, appropriately tender, surgical dressings clear dry and intact. Mildly distended. MUSCULOSKELETAL: There was no tenderness or effusions noted. Muscle strength and tone were normal. EXTREMITIES: No cyanosis, clubbing or edema. NEUROLOGIC: Alert and oriented x 3. Normal affect. Gait was normal. Strength is +5/5 in the Upper Extremities and Lower Extremities Bilaterally. Sensation to touch was normal. Objective Labs Result Diagrams: 06/09/19 22:23 06/09/19 22:23 Labs: Laboratory Results - last 24 hr 06/09/19 06/09/19 06/09/19 22:23 22:23 22:23 WBC 7.8 RBC 4.20 L Hgb 13.3 L Hct 39.4 L MCV 93.7 MCH 31.6 MCHC 33.7 RDW 13.4 Plt Count 226 Neut % (Auto) 86.7 H Lymph % (Auto) 4.4 L [place] % (Auto) 7.2 Eos % (Auto) 0.1 L Baso % (Auto) 1.6 Neut # (Auto) 6800 Lymph # (Auto) 300 L [place] # (Auto) 600 Eos # (Auto) 0 Baso # (Auto) 100 PT 16.7 H INR 1.4 H APTT 29 Sodium 135 L Potassium 4.0 Chloride 100 Carbon Dioxide 24 BUN 23 H Creatinine 1.30 H Estimated GFR 54.3 L BUN/Creatinine Ratio 17.7 Glucose 307 H Lactate Calcium 8.3 L Total Bilirubin 0.7 AST 32 ALT 21 Alkaline Phosphatase 87 Total Protein 6.7 Albumin 3.4 L Globulin 3.3 Albumin/Globulin Ratio 1.0 Lipase 116 Urine RBC Urine WBC Ur Squamous Epith Cells Amorphous Sediment Urine Bacteria Hyaline Casts Granular Casts Ur Culture Indicated? Nasal Screen MRSA (PCR) 06/09/19 06/10/19 06/10/19 22:23 00:31 10:00 WBC RBC Hgb Hct MCV MCH MCHC RDW Plt Count Neut % (Auto) Lymph % (Auto) [place] % (Auto) Eos % (Auto) Baso % (Auto) Neut # (Auto) Lymph # (Auto) [place] # (Auto) Eos # (Auto) Baso # (Auto) PT INR APTT Sodium Potassium Chloride Carbon Dioxide BUN Creatinine Estimated GFR BUN/Creatinine Ratio Glucose Lactate 1.0 Calcium Total Bilirubin AST ALT Alkaline Phosphatase Total Protein Albumin Globulin Albumin/Globulin Ratio Lipase Urine RBC 0-1/hpf Urine WBC 0-1/hpf Ur Squamous Epith Cells 0-1 /hpf Amorphous Sediment 1+ Urine Bacteria Occasional (0-1) Hyaline Casts 1-5/lpf Granular Casts 0-1/lpf Ur Culture Indicated? Specimen cultured Nasal Screen MRSA (PCR) Negative for mrsa Assessment & Plan Assessment & Plan narrative: Pedro Frye is a 74 year old male with PMH of DM, HTN, HLD, hypothyroid, and CAD (s/p CABG w/ pacemaker / defibrillator) who presented with severe abdominal pain and distension yesterday, he went to the OR early this morning and underwent an exploratory laparotomy with mid jejunal small bowel resection with primary anastomosis extensive abdominal lavage for a perforated small bowel. Medicine was consulted for assistance with management of his medical co-morbidities including CAD and DM. 1. Diabetes, type 2, with long-term insulin use - -continue fingersticks q.6 hours while NPO, changed to ACHS once started on a diet -start home glargine at half dosing, which will be 12 units nightly while NPO. -no evidence of DKA with normal anion gap. Blood sugars uncontrolled, slightly improved after subcu insulin. Target glucose will be < 180 after surgery. -start sliding scale at high dose. -will check A1c given unknown control as an outpatient currently. -hold home metformin wall inpatient 2. Coronary artery disease, stable, present on admission -patient is at increased risk for cardiac complications after urgent surgical interventions. Continue to monitor for chest pain or symptoms of cardiac disease. No postoperative troponins are necessary at this time. -continue telemetry -can continue home metoprolol and Lipitor 3. CKD, stage III, chronic, stable -unknown baseline creatinine, creatinine on admission 1.3. -continue to follow creatinine -adjust medications as necessary for appropriate creatinine clearance 4. Perforated small bowel, -management per surgery, agree with antibiotic selection currently. 5. Hypothyroidism, chronic -will check TSH -continue home levothyroxine 6. Hypertension, chronic, stable -can continue beta-emma as noted above, will hold on lisinopril, but can restart if normotensive or hypertensive tomorrow. Code:full, medications reconciled, surrogate decision maker is the patient's DVT prophylaxis per primary team Medicine will continue to follow for assistance with diabetes as his diet is increased.
[2019-06-10] MEDS: ENOXAPARIN 40 MG/0.4 ML SYRINGE SUBCUT (13:08)
[2019-06-10] MEDS: MORPHINE 2 MG/ML INJ IV ×3 (13:08→21:27)
[2019-06-10] MEDS: METOCLOPRAMIDE 10 MG/2 ML INJ IV ×2 (14:43→21:26)
--- NOTE | 2019-06-10 14:48 | PC.NURSE ---
Admission Pt arrived to room 226 from PACU, Alert drowsy. [place]in patent.Midline ABD dressing with Gauze and medipore tape CDI. Pt is able to use IS with great results to 1999, denies nausea. BT hypoactive. at bedside. SCDs in place. YUKI drain to L ABD with serosang fluid collecting. morphine given iV x1 for good pain control. Ice chips and sips Ok'd buy Dr Stovall. 1400-With assist, Pt is able to dangle and move to chair. Belching. No flatus
--- NOTE | 2019-06-10 15:38 | CM.DANOTE ---
Patient is a 74 year old male who was admitted today on 06/10/19 for Lower Abdominal Pain. Pt has for insurance and his PCP is Dr. Ace Mccallum. EMR was reviewed. Per Surgeon, pt scheduled for surgery today for SBO and mid abdominal abscess. Pt may need to have some removal of bowel. Per RN, pt back to floor from surgery. SW met briefly bedside with pt after surgical intervention and pt quite drowsy but currently denying any nausea. Pt confirms that he was recently discharged from [facility] for diverticulitis and has stage 3 kidney disease. Pt resides at home with supportive in [place] and isn't sure if he will require any d/c planning needs at this time. Pt is mostly independent with ADL's at baseline and is hopeful to d/c home when stable. Pt drowsy and unable to complete further assessment. Plan: SW to follow closely tomorrow to determine how pt progresses with eventual advancing of his diet and if any further identified needs for discharge. SUREKHA Hahn Discharge Planning/Care Management CM Discharge Assessment Start: 06/10/19 15:36 Freq: Status: Active Protocol: Document 06/10/19 15:37 BF (Rec: 06/10/19 15:38 BF [id number]) Discharge Planning Assessment Assigned [employer] Messenger ETIENNE Fajardo Advance Directives? No History Provided By Patient,Family Member,Medical Record Has Patient been admitted in last 30 No days? Comment Recent d/c from [facility] Prior Living Arrangements House Household Members spouse Type of transporation used prior to Drives own vehicle admit Independent with ADL's Yes Is patient alert and oriented? Yes Caregiver for Another No Comment Waiting to determine progress Discharge Plan Home with Home Health Transportation Arrangement Spouse bedside and likely can provide transport if safe for home Review Status In Process Please Provide Date Initial DC 06/10/19 Assessment Was Performed Next Review Type Continued Stay Review
[2019-06-10] MEDS: SIMETHICONE 80 MG TABLET PO ×2 (16:15→20:21)
[2019-06-10] MEDS: ACETAMINOPHEN 325 MG TABLET 650 MG PO (16:15)
[2019-06-10] MEDS: SODIUM CHLORIDE 0.9% 500 ML 1000 ML IV ×2 (18:22→22:48)
[2019-06-10] MEDS: INSULIN ASPART 100 UNIT/ML INSULN PEN SUBCUT (18:22)
--- NOTE | 2019-06-10 18:41 | PC.NURSE ---
Addendum entered by Nikia Best R.N. 06/10/19 22:16: 2200 - Dr. Mcduffie notified of urine output, 60cc since bolus, 80cc for the shift. Reviewed vital signs. BP 126/64 HR 103 RR 18 Temp 99.4 Order obtained for second 500cc bolus. 2100 - Pt request to get out of bed and stand at bedside. March in place. Deep breath. Attempted to locate taller chair. Pt expressing concerns with low seat. Set on edge of bed and then requested to return to bed. Pt tolerated well. Drsjamaal remains CDI. YUKI with 5cc out. See above r/t urine output. Original Note: 1830 - Resting in bed. Reports pain controlled at rest, however with IS use or activity reports intermittent spikes in pain. Educated to pain control medications and non-pharmacological interventions. Assist pt to reposition to left side lying. Dr. Mcduffie notified of low urine output. Reviewed vital signs, temp 100.3 and current IVF rate. Orders obtained. Pt BG 246, Sliding scale given as ordered. SCD's in place. Call light in reach.
[2019-06-10] MEDS: SODIUM CHLORIDE 0.9% 1,000 ML 175 ML IV (20:21)
[2019-06-10] MEDS: raNITIdine 150 MG CAPSULE PO (20:21)
[2019-06-10] MEDS: INSULIN GLARGINE 100 UNIT/ML 3ML PEN 12 UNIT SUBCUT (21:27)
[2019-06-11] VITALS (17 sets, daily range): BP systolic 122–168; BP diastolic 58–78; PULSE 89–105; RESP 18–24; TEMP 36.2–36.9; O2SAT 92–97
[2019-06-11] MEDS: INSULIN ASPART 100 UNIT/ML INSULN PEN SUBCUT ×4 (00:34→16:52)
[2019-06-11] MEDS: ACETAMINOPHEN 325 MG TABLET 650 MG PO ×3 (00:35→16:44)
[2019-06-11] MEDS: PIPERACILLIN-TAZO 4.5 GM/100 ML FROZ.PIGGY IV ×2 (01:16→10:54)
[2019-06-11] MEDS: MORPHINE 2 MG/ML INJ IV ×3 (01:16→21:20)
[2019-06-11] MEDS: SODIUM CHLORIDE 0.9% 1,000 ML 175 ML IV ×2 (03:38→08:39)
[2019-06-11] MEDS: METOCLOPRAMIDE 10 MG/2 ML INJ IV ×3 (05:28→21:16)
[2019-06-11 05:38] LABS: Hematocrit 41.2 % (41-53); Hemoglobin 13.6 g/dL (13.5-17.5); Mean Corpuscular Volume 94.1 fL (80-100); Platelet Count 253 X10^3/uL (150-400); Red Blood Cell Count 4.38 X10^6/uL (4.5-5.9); Red Cell Distribution Width 13.9 % (11.6-14.8); White Blood Cell Count 16.5 X10^3/uL (4.5-11.0)
[2019-06-11 05:43] LABS: Add Manual Diff / Slide Review YES
[2019-06-11 05:49] LABS: BUN Creatinine Ratio 15.7 (6-22); Blood Urea Nitrogen 36 mg/dL (9-20); Carbon Dioxide 20 mmol/L (22-32); Chloride 103 mmol/L (98-107); Estimated Glomerular Filt Rate 28.1 mL/min (>60); Glucose 236 mg/dL (80-110); HEMOLYSIS < 15 (0-50); Potassium 4.5 mmol/L (3.4-5.1); Sodium 136 mmol/L (137-145)
[2019-06-11 05:53] LABS: Neutrophils Absolute Manual 14190 /uL (3000-5900); RBC Morphology Normal Morphology; Total Cells Counted 100
[2019-06-11 06:03] LABS: Calcium 7.3 mg/dL (8.4-10.2)
[2019-06-11 06:21] LABS: TSH w/ Reflex to FT4 6.64 uIU/mL (0.47-4.68)
--- NOTE | 2019-06-11 09:06 | P.PN_ITS ---
Subjective Subjective Date Patient Seen: 06/11/19 Time Patient Seen: 09:06 Interval history: Patient is 1 day postop exploratory laparotomy for diffuse purulence peritonitis secondary to perforated Meckel's diverticulum. He had a small bowel resection yesterday. Extensive peritoneal lavage. Patient feels much better than before surgery today he is sitting in a chair walking in his room he is alert and oriented with only moderate abdominal pain. Exam Vital Signs (past 8 hours): - 06/11/19 02:00 06/11/19 04:00 06/11/19 05:00 Temperature Pulse Rate 105 H 99 H Respiratory Rate 20 22 Blood Pressure 148/69 H 153/70 H Pulse Oximetry 95 97 96 06/11/19 06:00 06/11/19 07:45 06/11/19 08:00 Temperature 98.4 F 98.4 F Pulse Rate 104 H 105 H 105 H Respiratory Rate 20 20 20 Blood Pressure 162/70 H 165/72 H 122/69 Pulse Oximetry 95 95 95 Oxygen Delivery Method Room Air Oxygen Flow Rate 2 Narrative Exam Narrative: Patient is afebrile alert and oriented Lungs are clear Heart regular rhythm no murmur Abdomen slightly distended dressing is dry and intact Eduin Taylor drain is producing clear serosanguineous fluid minimal amount. Objective Labs Result Diagrams: 06/11/19 04:47 06/11/19 04:47 Labs: Laboratory Results - last 24 hr 06/10/19 06/11/19 06/11/19 10:00 04:47 04:47 WBC 16.5 H D RBC 4.38 L Hgb 13.6 Hct 41.2 MCV 94.1 MCH 31.0 MCHC 33.0 RDW 13.9 Plt Count 253 Neut % (Auto) Not Reportable Lymph % (Auto) Not Reportable [place] % (Auto) Not Reportable Eos % (Auto) Not Reportable Baso % (Auto) Not Reportable Lymph # (Auto) Not Reportable [place] # (Auto) Not Reportable Baso # (Auto) Not Reportable Total Counted 100 Seg Neutrophils % 68.0 Band Neutrophils % 18.0 H Lymphocytes % (Manual) 6.0 L Monocytes % (Manual) 8.0 Neutrophils # (Manual) 80763 H RBC Morphology Normal morphology Sodium 136 L Potassium 4.5 Chloride 103 Carbon Dioxide 20 L BUN 36 H Creatinine 2.30 H Estimated GFR 28.1 L BUN/Creatinine Ratio 15.7 Glucose 236 H Hemoglobin A1c Calcium 7.3 L TSH Free T4 Nasal Screen MRSA (PCR) Negative for mrsa 06/11/19 06/11/19 04:47 04:47 WBC RBC Hgb Hct MCV MCH MCHC RDW Plt Count Neut % (Auto) Lymph % (Auto) [place] % (Auto) Eos % (Auto) Baso % (Auto) Lymph # (Auto) [place] # (Auto) Baso # (Auto) Total Counted Seg Neutrophils % Band Neutrophils % Lymphocytes % (Manual) Monocytes % (Manual) Neutrophils # (Manual) RBC Morphology Sodium Potassium Chloride Carbon Dioxide BUN Creatinine Estimated GFR BUN/Creatinine Ratio Glucose Hemoglobin A1c 8.0 H Calcium TSH 6.64 H Free T4 1.60 Nasal Screen MRSA (PCR) Assessment & Plan Assessment & Plan narrative: Patient has been severely oliguric all day yeste rday and through the night last night. He has nearly doubled his creatinine from 1.3-2.3 in the last 24 hours. He has no signs of congestive heart failure. I suspect he is in a phase of acute renal failure secondary to sepsis. We will monitor this closely. I have reduced his IV intake. I have stopped his Lovenox and will treat his DVT prophylaxis using heparin subcu. I started a clear liqui d diet today. We will continue using his Hardin catheter to monitor urinary function carefully. I have explained all this to the patient and he understands. Quality VTE Deep Vein Thrombosis/Pulmonary Embolism Present on Admission: No
[2019-06-11] MEDS: raNITIdine 150 MG CAPSULE PO ×2 (10:50→21:16)
[2019-06-11] MEDS: LEVOTHYROXINE 75 MCG TABLET PO (10:51)
[2019-06-11] MEDS: METOPROLOL ER 50 MG TABLET PO (10:51)
[2019-06-11] MEDS: ATORVASTATIN 20 MG TABLET 40 MG PO (10:52)
[2019-06-11] MEDS: SIMETHICONE 80 MG TABLET PO ×4 (10:53→21:16)
[2019-06-11] MEDS: PANTOPRAZOLE 40 MG VIAL IV (10:58)
--- NOTE | 2019-06-11 14:46 | PC.NURSE ---
Am shift Pt is A/ox4, using call light for needs. Up with 1 PA to chair, ambulating halls between meals. ABD is round, distended and slightly painful to palpation. BT are active. BM noted to bed sheet, only smear, x2. Denies flatus. APAP given at noon for 1/10 pain, no further pain meds this shift. Clear liquid diet started.
[2019-06-11] MEDS: PIPERACILLIN-TAZO 2.25 GM/50 ML FROZ.PIGGY IV ×2 (16:43→22:09)
[2019-06-11] MEDS: SODIUM CHLORIDE 0.9% 1,000 ML 100 ML IV (18:28)
--- NOTE | 2019-06-11 19:00 | PM.PN.1 ---
Subjective Subjective Date Patient Seen: 06/11/19 Time Patient Seen: 11:00 Interval history: Pedro Frye is a 74 year old male with PMH of DM, HTN, HLD, hypothyroid, and CAD (s/p CABG w/ pacemaker / defibrillator) who presented with severe abdominal pain and distension. In the ED, he had a CT which showed a mid abdominal abscess which created an SBO per surgery. He went to the OR on 06/10/2019 and underwent an exploratory laparotomy with mid jejunal small bowel resection with primary anastomosis extensive abdominal lavage. Medicine was consulted for assistance with management of his medical co-morbidities including CAD and DM. His morning glucose was 208, and he is started on some p.o. intake. His Lantus will be increased this evening. He also has a worsening creatinine which is likely secondary to his intra-abdominal infection. He has been started on IV fluids. His A1c came back at 8%. He denies any chest pain, shortness of breath, lower extremity edema, dyspnea on exertion, orthopnea. He denied abdominal pain to me this morning. He denies any nausea or vomiting. He denies any recent fevers or chills. Exam Vital Signs (past 8 hours): - 06/11/19 12:31 06/11/19 13:00 06/11/19 15:59 Temperature 98.1 F 97.8 F Pulse Rate 95 H 97 H 95 H Respiratory Rate 20 19 Blood Pressure 134/64 150/69 H Pulse Oximetry 96 06/11/19 17:03 Temperature Pulse Rate Respiratory Rate Blood Pressure Pulse Oximetry 95 Oxygen Delivery Method Room Air Oxygen Flow Rate 2 Narrative Exam Narrative: GENERAL APPEARANCE: Well developed, well nourished, elderly male in no acute distress. Comfortable appearing. SKIN: Inspection of the skin reveals no rashes, ulcerations or petechiae. HEENT: The sclerae were anicteric and conjunctivae were pink and moist. Extraocular movements were intact and pupils were equal, round with normal accommodation. External inspection of the ears and nose showed no scars, lesions, or masses. Lips, teeth, and gums showed normal mucosa. The oral mucosa, hard and soft palate, tongue and posterior pharynx were unremarkable. NECK: Supple and symmetric. There was no thyroid enlargement, and no tenderness, or masses were felt. CHEST: Normal AP diameter and normal contour without any kyphoscoliosis. LUNGS: Auscultation of the lungs revealed no wheezes, rhonchi, or rales. CARDIOVASCULAR: There was a regular rate and rhythm without any murmurs, gallops, rubs. Peripheral pulses were 2+ and symmetric. ABDOMEN: Soft, appropriately tender, surgical dressings clear dry and intact. Mildly distended. MUSCULOSKELETAL: There was no tenderness or effusions noted. Muscle strength and tone were normal. EXTREMITIES: No cyanosis, clubbing or edema. NEUROLOGIC: Alert and oriented x 3. Normal affect. Gait was normal. Strength is +5/5 in the Upper Extremities and Lower Extremities Bilaterally. Sensation to touch was normal. Objective Labs Result Diagrams: 06/11/19 04:47 06/11/19 04:47 Labs: Laboratory Results - last 24 hr 06/11/19 06/11/19 06/11/19 04:47 04:47 04:47 WBC 16.5 H D RBC 4.38 L Hgb 13.6 Hct 41.2 MCV 94.1 MCH 31.0 MCHC 33.0 RDW 13.9 Plt Count 253 Neut % (Auto) Not Reportable Lymph % (Auto) Not Reportable [place] % (Auto) Not Reportable Eos % (Auto) Not Reportable Baso % (Auto) Not Reportable Lymph # (Auto) Not Reportable [place] # (Auto) Not Reportable Baso # (Auto) Not Reportable Total Counted 100 Seg Neutrophils % 68.0 Band Neutrophils % 18.0 H Lymphocytes % (Manual) 6.0 L Monocytes % (Manual) 8.0 Neutrophils # (Manual) 36307 H RBC Morphology Normal morphology Sodium 136 L Potassium 4.5 Chloride 103 Carbon Dioxide 20 L BUN 36 H Creatinine 2.30 H Estimated GFR 28.1 L BUN/Creatinine Ratio 15.7 Glucose 236 H Hemoglobin A1c 8.0 H Calcium 7.3 L TSH Free T4 06/11/19 04:47 WBC RBC Hgb Hct MCV MCH MCHC RDW Plt Count Neut % (Auto) Lymph % (Auto) [place] % (Auto) Eos % (Auto) Baso % (Auto) Lymph # (Auto) [place] # (Auto) Baso # (Auto) Total Counted Seg Neutrophils % Band Neutrophils % Lymphocytes % (Manual) Monocytes % (Manual) Neutrophils # (Manual) RBC Morphology Sodium Potassium Chloride Carbon Dioxide BUN Creatinine Estimated GFR BUN/Creatinine Ratio Glucose Hemoglobin A1c Calcium TSH 6.64 H Free T4 1.60 Assessment & Plan Assessment & Plan narrative: Pedro Frye is a 74 year old male with PMH of DM, HTN, HLD, hypothyroid, and CAD (s/p CABG w/ pacemaker / defibrillator) who presented with severe abdominal pain and distension, he went to the ORand underwent an exploratory laparotomy with mid jejunal small bowel resection with primary anastomosis extensive abdominal lavage for a perforated small bowel. Medicine was consulted for assistance with management of his medical co-morbidities including CAD and DM. 1. Diabetes, type 2, with long-term insulin use - -continue fingersticks q.6 hours while NPO, changed to ACHS once started on a diet -started home glargine at half dosing, which was 12 units nightly while NPO. Will increase today to 18 units. -no evidence of DKA with normal anion gap. Blood sugars uncontrolled, slightly improved after subcu insulin. Target glucose will be < 180. -started sliding scale at high dose. -will check A1c given unknown control as an outpatient currently. -hold home metformin while inpatient 2. Acute kidney injury, active -creatinine rise from 1.3 to 2.3 today. Unknown baseline creatinine. In setting of stage III CKD that has been previously documented. -likely secondary to ATN in the setting of his infection. He has been started on IV fluids and will continue hydration. -avoid nephrotoxic medications -continue to follow creatinine daily 3. Coronary artery disease, stable, present on admission -patient is at increased risk for cardiac complications after urgent surgical interventions. Continue to monitor for chest pain or symptoms of cardiac disease. No postoperative troponins are necessary at this time. -continue telemetry -can continue home metoprolol and Lipitor 4. CKD, stage III, chronic, stable -unknown baseline creatinine, creatinine on admission 1.3. -continue to follow creatinine as noted above -adjust medications as necessary for appropriate creatinine clearance 4. Perforated small bowel, -management per surgery, agree with antibiotic selection currently. 5. Hypothyroidism, chronic -TSH is slightly elevated at 6.64, with normal free T4. This may be indicative of sick euthyroid. He has no other symptoms at this time. Continue his current home dose of levothyroxine and he should have additional outpatient testing in a couple of months. -continue home levothyroxine 6. Hypertension, chronic, stable -can continue beta-emma as noted above, will hold on lisinopril, but can restart if normotensive or hypertensive tomorrow. Code:full, medications reconciled, surrogate decision maker is the patient's DVT prophylaxis per primary team Medicine will continue to follow for assistance with diabetes as his diet is increased. Quality VTE Deep Vein Thrombosis/Pulmonary Embolism Present on Admission: No
[2019-06-11] MEDS: HEPARIN 5,000 UNIT/ML VIAL 5000 UNIT SUBCUT (21:16)
[2019-06-11] MEDS: INSULIN GLARGINE 100 UNIT/ML 3ML PEN 18 UNIT SUBCUT (21:25)
--- NOTE | 2019-06-11 22:18 | PC.NURSE ---
2100 - Pt sitting on edge of bed. Reports feeling anxious, mildly SOB, overall uncomfortable. Dr. Mcduffie notified of the following assessment. LS dim with fine crackles at the bases. 95% on RA. Abd distended. BT+, denies flatus. Hardin emptied for 400cc. PO intake >800cc this shift. NS infusing at 100cc/hr. BP 168/78 HR 88 temp 97.7. RR 20. Orders obtain to decrease IVF rate. One time Lasix. Elevate HOB 15-30, PRN ativan for sleep. Supportive at bedside. Call light in reach. Monitor.
[2019-06-11] MEDS: FUROSEMIDE 20 MG/2 ML VIAL IV (22:28)
[2019-06-12] VITALS (14 sets, daily range): BP systolic 164–201; BP diastolic 71–96; PULSE 80–103; RESP 15–26; TEMP 32.8–37.1; O2SAT 95–99; BMI 31.9
[2019-06-12] MEDS: MORPHINE 2 MG/ML INJ IV (01:34)
[2019-06-12] MEDS: PIPERACILLIN-TAZO 2.25 GM/50 ML FROZ.PIGGY IV ×4 (05:29→22:30)
[2019-06-12] MEDS: LEVOTHYROXINE 75 MCG TABLET PO (05:30)
[2019-06-12] MEDS: METOCLOPRAMIDE 10 MG/2 ML INJ IV ×3 (05:30→22:10)
[2019-06-12] MEDS: HYDRALAZINE 20 MG/ML VIAL 10 MG IV (05:30)
[2019-06-12 05:55] LABS: Add Manual Diff / Slide Review NO; Basophils Absolute Auto 100 /uL (0-100); Basophils Percent Auto 0.2 % (0-2); Eosinophils Absolute Auto 100 /uL (0-450); Eosinophils Percent Auto 0.4 % (2-4); Hematocrit 36.9 % (41-53); Hemoglobin 12.4 g/dL (13.5-17.5); Lymphocytes Absolute Auto 900 /uL (1100-4500); Mean Corpuscular HGB Conc 33.5 % (30-36); Mean Corpuscular Hemoglobin 31.3 PG (26-34); Mean Corpuscular Volume 93.5 fL (80-100); Monocytes Absolute Auto 1200 /uL (0-900); Monocytes Percent Auto 5.4 % (3-14); Neutrophils Absolute Auto 20000 /uL (1500-7000); Platelet Count 338 X10^3/uL (150-400); Red Blood Cell Count 3.95 X10^6/uL (4.5-5.9); Red Cell Distribution Width 14.2 % (11.6-14.8); White Blood Cell Count 22.2 X10^3/uL (4.5-11.0)
[2019-06-12 06:06] LABS: BUN Creatinine Ratio 16.5 (6-22); Blood Urea Nitrogen 33 mg/dL (9-20); Calcium 7.9 mg/dL (8.4-10.2); Carbon Dioxide 25 mmol/L (22-32); Chloride 104 mmol/L (98-107); Glucose 132 mg/dL (80-110); HEMOLYSIS < 15 (0-50); Potassium 3.9 mmol/L (3.4-5.1); Sodium 138 mmol/L (137-145)
--- NOTE | 2019-06-12 06:20 | PC.NURSE ---
Addendum entered by Kamryn Ventura R.N. 06/12/19 06:41: Ambulated in halls with SBA using FWW, very steady gait. Reports improved breathing during ambulation. Pain 05/08, declines need for medication. Original Note: Patient with uneventful night. BP around 0500 elevated 201/96. Patient reports home medication of lisinopril 20 mg daily. SELVIN Barone updated. Orders for hydralazine X 1 with repeat BP of 177/79. Patient with shallow breathing related to distended ABD but denies SOB. Sp02 maintained 96% on RA overnight. IS up to 2000+. Declines ativan order discussed on evening shift with similar breathing pattern after speaking with Dr. Francisco. He reports improvement in breathing ability when he sits up at the side of the bed or ambulates.
[2019-06-12] MEDS: ATORVASTATIN 20 MG TABLET 40 MG PO (08:35)
[2019-06-12] MEDS: METOPROLOL ER 50 MG TABLET PO (08:35)
[2019-06-12] MEDS: PANTOPRAZOLE 40 MG VIAL IV (08:35)
[2019-06-12] MEDS: SIMETHICONE 80 MG TABLET PO ×4 (08:35→20:55)
[2019-06-12] MEDS: HEPARIN 5,000 UNIT/ML VIAL 5000 UNIT SUBCUT ×2 (08:36→20:55)
[2019-06-12] MEDS: INSULIN ASPART 100 UNIT/ML INSULN PEN SUBCUT ×3 (08:39→21:01)
[2019-06-12] MEDS: ACETAMINOPHEN 325 MG TABLET 650 MG PO (08:40)
--- NOTE | 2019-06-12 09:09 | PM.PN.1 ---
Subjective Subjective Date Patient Seen: 06/12/19 Time Patient Seen: 09:09 Interval history: Patient is 2 days post exploratory laparotomy small-bowel resection for a perforated Meckel's diverticulum with severe extensive purulence peritonitis. Today he feels very little pain he is tolerating clear liquids with no nausea or vomiting. He has had no flatus or bowel movement yet. He is ambulating in the halls. Exam Vital Signs (past 8 hours): - 06/12/19 05:00 06/12/19 05:19 06/12/19 05:30 Temperature 98.7 F Pulse Rate 94 H 86 Respiratory Rate 24 Blood Pressure 201/96 H 201/96 H Pulse Oximetry 96 96 06/12/19 06:03 06/12/19 06:18 06/12/19 08:35 Temperature Pulse Rate 103 H 94 H Respiratory Rate Blood Pressure 177/79 H 177/79 H 164/74 H Pulse Oximetry Oxygen Delivery Method Room Air Oxygen Flow Rate 0 Narrative Exam Narrative: Patient is afebrile Lungs are clear Abdomen less distended than yesterday. Incision is healing nicely with no sign of infection. Eduin drain is producing serosanguineous fluid. Objective Labs Result Diagrams: 06/12/19 05:45 06/12/19 05:45 Labs: Laboratory Results - last 24 hr 06/12/19 06/12/19 05:45 05:45 WBC 22.2 H RBC 3.95 L Hgb 12.4 L Hct 36.9 L MCV 93.5 MCH 31.3 MCHC 33.5 RDW 14.2 Plt Count 338 Neut % (Auto) 90.0 H Lymph % (Auto) 4.0 L [place] % (Auto) 5.4 Eos % (Auto) 0.4 L Baso % (Auto) 0.2 Neut # (Auto) 45036 H Lymph # (Auto) 900 L [place] # (Auto) 1200 H Eos # (Auto) 100 Baso # (Auto) 100 Sodium 138 Potassium 3.9 Chloride 104 Carbon Dioxide 25 BUN 33 H Creatinine 2.00 H Estimated GFR 33.0 L BUN/Creatinine Ratio 16.5 Glucose 132 H D Calcium 7.9 L Assessment & Plan Assessment & Plan narrative: Patient is recovering from an abdominal catastrophe. He is afebrile. His white count however is 22,000 today. His serum creatinine has fallen from 2.3-2.0 and his urine output is excellent. His episode of acute tubular necrosis related to sepsis is resolving in my opinion. Patient still has ileus. Intraperitoneal cultures are not available yet. We will continue treatment with IV Zosyn. I have advanced his diet to full liquids. Quality VTE Deep Vein Thrombosis/Pulmonary Embolism Present on Admission: No
[2019-06-12] MEDS: lisinopriL 20 MG TABLET PO (09:39)
[2019-06-12] MEDS: raNITIdine 150 MG CAPSULE PO ×2 (09:39→20:54)
--- NOTE | 2019-06-12 11:12 | PC.NURSE ---
Am Shift Pt is A/o up to chair having clear liquid breakfast. Denies nausea. Denies flatus, has noted some small smears of BM to chucks pad. Pt continues to be motivated on IS and ambulating in hallway, up 2 x before lunch today. SBA, using FWW. Pt is denying pain, APAP given this AM Pt doesnt feel he needs narcotic at this time. Will address with provider. Home lisinopril is restarted d/t HTN, kidney function continues to improve. Stopped IVF d/t faint crackles/fluid overload potential. PT denies SOB at this time. ABD dressing is rolling, and will be replaced after patient bed bath.
--- NOTE | 2019-06-12 16:34 | CM.DPC ---
DCP: continued: case discussed in Team Rounds. Pt is continuing to recover from his surgery. He is up mobilizing about the halls. P: remains home setting when stable for same. DCP team to follow prn for any d/c needs that may arise.
--- NOTE | 2019-06-12 19:17 | PM.PN.1 ---
Subjective Subjective Date Patient Seen: 06/12/19 Time Patient Seen: 09:15 Interval history: Pedro Frye is a 74 year old male with PMH of DM, HTN, HLD, hypothyroid, and CAD (s/p CABG w/ pacemaker / defibrillator) who presented with severe abdominal pain and distension. In the ED, he had a CT which showed a mid abdominal abscess which created an SBO per surgery. He went to the OR on 06/10/2019 and underwent an exploratory laparotomy with mid jejunal small bowel resection with primary anastomosis extensive abdominal lavage. Medicine was consulted for assistance with management of his medical co-morbidities including CAD and DM. His A1c came back at 8%. His morning blood glucose levels are <180 at this time. He denies any chest pain, shortness of breath, lower extremity edema, dyspnea on exertion, orthopnea. He denied abdominal pain to me this morning. He denies any nausea or vomiting. He denies any recent fevers or chills. Exam Vital Signs (past 8 hours): - 06/12/19 12:30 06/12/19 13:00 06/12/19 15:38 Temperature 98.2 F 98.2 F Pulse Rate 81 80 Respiratory Rate 16 17 Blood Pressure 165/71 H 177/81 H Pulse Oximetry 97 99 96 Oxygen Delivery Method Room Air Oxygen Flow Rate 0 Narrative Exam Narrative: GENERAL APPEARANCE: Well developed, well nourished, elderly male in no acute distress. Comfortable appearing. SKIN: Inspection of the skin reveals no rashes, ulcerations or petechiae. HEENT: The sclerae were anicteric and conjunctivae were pink and moist. Extraocular movements were intact and pupils were equal, round with normal accommodation. External inspection of the ears and nose showed no scars, lesions, or masses. Lips, teeth, and gums showed normal mucosa. The oral mucosa, hard and soft palate, tongue and posterior pharynx were unremarkable. NECK: Supple and symmetric. There was no thyroid enlargement, and no tenderness, or masses were felt. CHEST: Normal AP diameter and normal contour without any kyphoscoliosis. LUNGS: Auscultation of the lungs revealed no wheezes, rhonchi, or rales. CARDIOVASCULAR: There was a regular rate and rhythm without any murmurs, gallops, rubs. Peripheral pulses were 2+ and symmetric. ABDOMEN: Soft, appropriately tender, surgical dressings clear dry and intact. Mildly distended. MUSCULOSKELETAL: There was no tenderness or effusions noted. Muscle strength and tone were normal. EXTREMITIES: No cyanosis, clubbing or edema. NEUROLOGIC: Alert and oriented x 3. Normal affect. Gait was normal. Strength is +5/5 in the Upper Extremities and Lower Extremities Bilaterally. Sensation to touch was normal. Objective Labs Result Diagrams: 06/12/19 05:45 06/12/19 05:45 Labs: Laboratory Results - last 24 hr 06/12/19 06/12/19 05:45 05:45 WBC 22.2 H RBC 3.95 L Hgb 12.4 L Hct 36.9 L MCV 93.5 MCH 31.3 MCHC 33.5 RDW 14.2 Plt Count 338 Neut % (Auto) 90.0 H Lymph % (Auto) 4.0 L [place] % (Auto) 5.4 Eos % (Auto) 0.4 L Baso % (Auto) 0.2 Neut # (Auto) 08791 H Lymph # (Auto) 900 L [place] # (Auto) 1200 H Eos # (Auto) 100 Baso # (Auto) 100 Sodium 138 Potassium 3.9 Chloride 104 Carbon Dioxide 25 BUN 33 H Creatinine 2.00 H Estimated GFR 33.0 L BUN/Creatinine Ratio 16.5 Glucose 132 H D Calcium 7.9 L Assessment & Plan Assessment & Plan narrative: Pedro Frye is a 74 year old male with PMH of DM, HTN, HLD, hypothyroid, and CAD (s/p CABG w/ pacemaker / defibrillator) who presented with severe abdominal pain and distension, he went to the ORand underwent an exploratory laparotomy with mid jejunal small bowel resection with primary anastomosis extensive abdominal lavage for a perforated small bowel. Medicine was consulted for assistance with management of his medical co-morbidities including CAD and DM. 1. Diabetes, type 2, with long-term insulin use - -continue fingersticks q.6 hours while NPO, changed to ACHS once started on a diet -started home glargine at half dosing, which was 12 units nightly while NPO. Good control today at 18 units. As his diet is increased will likely need to increase to his home dosing of 24 units. -no evidence of DKA with normal anion gap. Blood sugars uncontrolled, slightly improved after subcu insulin. Target glucose will be < 180. -started sliding scale at high dose. -A1c is 8.0% -hold home metformin while inpatient 2. Acute kidney injury, active -creatinine rise from 1.3 to 2.3 now improved slightly to 2.0 today. Unknown baseline creatinine. In setting of stage III CKD that has been previously documented. -likely secondary to ATN in the setting of his infection. He has been started on IV fluids and will continue hydration. -avoid nephrotoxic medications -continue to follow creatinine daily 3. Coronary artery disease, stable, present on admission -patient is at increased risk for cardiac complications after urgent surgical interventions. Continue to monitor for chest pain or symptoms of cardiac disease. No postoperative troponins were drawn. -continue telemetry -can continue home metoprolol and Lipitor 4. CKD, stage III, chronic, stable -unknown baseline creatinine, creatinine on admission 1.3. -continue to follow creatinine as noted above -adjust medications as necessary for appropriate creatinine clearance 4. Perforated small bowel -management per surgery, agree with antibiotic selection currently. 5. Hypothyroidism, chronic -TSH is slightly elevated at 6.64, with normal free T4. This may be indicative of sick euthyroid. He has no other symptoms at this time. Continue his current home dose of levothyroxine and he should have additional outpatient testing in a couple of months. -continue home levothyroxine 6. Hypertension, chronic, stable -can continue beta-emma as noted above, lisinopril was restarted today. Code:full, medications reconciled, surrogate decision maker is the patient's DVT prophylaxis per primary team Medicine will continue to follow for assistance with diabetes as his diet is increased. Do not hesitate to contact with additional questions. Quality VTE Deep Vein Thrombosis/Pulmonary Embolism Present on Admission: No
[2019-06-12] MEDS: LORazepam 1 MG TABLET PO (19:38)
--- NOTE | 2019-06-12 19:46 | PC.NURSE ---
Addendum entered by Neli Lyles R.N. 06/12/19 19:49: Pt states that he is feeling anxious, 1 mg Ativan PO administered. Will continue to monitor for effectiveness. Original Note: Pt sitting up in chair, A/O x4, pt states pain is 2, no needs for pain meds at this time. Call light is within reach, pt states he want to continue to sit in chair until after dinner. Will ambulate with ALLERGY PHYSICIAN in an hour, no further needs at this time, will continue to monitor.
[2019-06-12] MEDS: BISACODYL 10 MG SUPP PR (20:55)
[2019-06-12] MEDS: INSULIN GLARGINE 100 UNIT/ML 3ML PEN 18 UNIT SUBCUT (20:58)
[2019-06-13] VITALS (13 sets, daily range): BP systolic 166–205; BP diastolic 76–93; PULSE 77–90; RESP 16–20; TEMP 36.2–37; O2SAT 93–98; BMI 31.4
[2019-06-13] MEDS: PIPERACILLIN-TAZO 2.25 GM/50 ML FROZ.PIGGY IV (04:40)
[2019-06-13 05:26] LABS: Add Manual Diff / Slide Review NO; Basophils Absolute Auto 100 /uL (0-100); Basophils Percent Auto 0.5 % (0-2); Eosinophils Absolute Auto 300 /uL (0-450); Hematocrit 35.4 % (41-53); Hemoglobin 11.9 g/dL (13.5-17.5); Lymphocytes Absolute Auto 600 /uL (1100-4500); Lymphocytes Percent Auto 4.3 % (25-40); Mean Corpuscular HGB Conc 33.7 % (30-36); Mean Corpuscular Hemoglobin 31.3 PG (26-34); Monocytes Absolute Auto 1000 /uL (0-900); Neutrophils Absolute Auto 12300 /uL (1500-7000); Neutrophils Percent Auto 86.2 % (50-75); Platelet Count 348 X10^3/uL (150-400); White Blood Cell Count 14.3 X10^3/uL (4.5-11.0)
[2019-06-13] MEDS: LEVOTHYROXINE 75 MCG TABLET PO (05:33)
[2019-06-13] MEDS: METOCLOPRAMIDE 10 MG/2 ML INJ IV ×3 (05:33→21:36)
[2019-06-13 05:37] LABS: Magnesium 1.7 mg/dL (1.6-2.3)
[2019-06-13 05:38] LABS: BUN Creatinine Ratio 19.4 (6-22); Blood Urea Nitrogen 31 mg/dL (9-20); Calcium 8.4 mg/dL (8.4-10.2); Carbon Dioxide 24 mmol/L (22-32); Chloride 104 mmol/L (98-107); Estimated Glomerular Filt Rate 42.7 mL/min (>60); Glucose 181 mg/dL (80-110); HEMOLYSIS < 15 (0-50); Sodium 137 mmol/L (137-145)
[2019-06-13] MEDS: raNITIdine 150 MG CAPSULE PO ×2 (09:36→21:37)
[2019-06-13] MEDS: lisinopriL 20 MG TABLET PO (09:36)
[2019-06-13] MEDS: PANTOPRAZOLE 40 MG VIAL IV (09:36)
[2019-06-13] MEDS: HEPARIN 5,000 UNIT/ML VIAL 5000 UNIT SUBCUT ×2 (09:36→21:33)
[2019-06-13] MEDS: ATORVASTATIN 20 MG TABLET 40 MG PO (09:36)
[2019-06-13] MEDS: BISACODYL 10 MG SUPP PR (09:36)
[2019-06-13] MEDS: METOPROLOL ER 50 MG TABLET PO (09:37)
[2019-06-13] MEDS: SIMETHICONE 80 MG TABLET PO ×4 (09:37→21:37)
--- NOTE | 2019-06-13 09:38 | PM.PN.1 ---
Subjective Subjective Date Patient Seen: 06/13/19 Time Patient Seen: 09:39 Interval history: Patient is 3 days post exploratory laparotomy extensive peritoneal lavage small-bowel resection for perforated Meckel's diverticulum and diffuse severe peritonitis. Subjectively the patient feels better today he is ambulating has virtually no pain he is tolerating a full liquid diet with no nausea or vomiting but has no flatus or BM yet. Exam Vital Signs (past 8 hours): - 06/13/19 04:40 06/13/19 04:44 06/13/19 08:14 Temperature 98.6 F 98 F Pulse Rate 90 82 Respiratory Rate 16 16 Blood Pressure 175/85 H 177/85 H Pulse Oximetry 95 94 98 06/13/19 08:49 Temperature Pulse Rate Respiratory Rate Blood Pressure Pulse Oximetry 98 Oxygen Delivery Method Room Air Oxygen Flow Rate 0 Narrative Exam Narrative: Patient is afebrile alert and oriented with no complaints Lungs are clear Abdomen is soft with minimal tenderness around the incision No sign of wound infection Eduin drain producing small amount of serosanguineous fluid Objective Labs Result Diagrams: 06/13/19 05:20 06/13/19 05:20 Labs: Laboratory Results - last 24 hr 06/13/19 06/13/19 06/13/19 05:20 05:20 05:20 WBC 14.3 H RBC 3.80 L Hgb 11.9 L Hct 35.4 L MCV 93.0 MCH 31.3 MCHC 33.7 RDW 14.0 Plt Count 348 Neut % (Auto) 86.2 H Lymph % (Auto) 4.3 L [place] % (Auto) 7.0 Eos % (Auto) 2.0 Baso % (Auto) 0.5 Neut # (Auto) 75750 H Lymph # (Auto) 600 L [place] # (Auto) 1000 H Eos # (Auto) 300 Baso # (Auto) 100 Sodium 137 Potassium 4.0 Chloride 104 Carbon Dioxide 24 BUN 31 H Creatinine 1.60 H Estimated GFR 42.7 L BUN/Creatinine Ratio 19.4 Glucose 181 H Calcium 8.4 Magnesium 1.7 Assessment & Plan Assessment & Plan narrative: Patient is recovering from severe peritonitis acute renal failure and sepsis. He still has an adynamic ileus. His renal function is much improved his creatinine is fallen from 2.3-1.4 and he is making adequate urine. I will remove the Hardin catheter today. We will continue full liquid diet continue intravenous Zosyn. There are no results yet from the peritoneal cultures. Quality VTE Deep Vein Thrombosis/Pulmonary Embolism Present on Admission: No
[2019-06-13] MEDS: INSULIN ASPART 100 UNIT/ML INSULN PEN SUBCUT ×4 (09:45→21:35)
[2019-06-13] MEDS: PIPERACILLIN-TAZO 3.375 GM/50 ML FROZ.PIGGY IV ×2 (11:58→16:54)
--- NOTE | 2019-06-13 14:52 | PC.NURSE ---
Day Shift AOx4, calm, and pleasant. Spouse in the room with patient. Ambulated etienne 3x during this shift. Stable normal gait. Denies pain and nausea. Tolerating full liquid diet well. Hardin catheter removed at 1200. Had small BM and is voiding clear yellow urine at this time.
--- NOTE | 2019-06-13 15:18 | P.PN_ITS ---
Subjective Subjective Date Patient Seen: 06/13/19 Interval history: Pedro Frye is a 74-year-old male with past medical history significant for CAD status post AICD, hypertension, hyperlipidemia, diabetes mellitus type 2, insulin using, and hypothyroidism who presented with severe abdominal pain and distension. In the ED, he had a CT which showed a mid abdominal abscess which created an SBO per surgery. He went to the OR on 06/10/2019 and underwent an exploratory laparotomy with mid jejunal small bowel resection with primary anastomosis extensive abdominal lavage. Medicine team was consulted for management of including CAD and diabetes mellitus type 2. The patient is resting comfortably in bedside chair playing cards with his spouse. He has no complaints and reports he is doing well. He has tenderness at incision site but otherwise denies abdominal pain. He denies headache, chest pain, shortness of breath, nausea, vomiting, fever, chills, dysuria, diarrhea or constipation. Hardin catheter has been removed he is voiding without difficulty. He had a bowel movement today. He is up ambulating independently. Exam Vital Signs (past 8 hours): - 06/13/19 08:14 06/13/19 08:49 06/13/19 11:00 Temperature 98 F Pulse Rate 82 85 Respiratory Rate 16 Blood Pressure 177/85 H Pulse Oximetry 98 98 06/13/19 11:53 06/13/19 12:16 Temperature 98.3 F Pulse Rate 77 Respiratory Rate 18 Blood Pressure 171/85 H Pulse Oximetry 95 95 Oxygen Delivery Method Room Air Oxygen Flow Rate 0 Narrative Exam Narrative: General: Elderly gentleman sitting in bedside chair and in no acute distress, well-developed, well-nourished, appropriately interactive. HEENT: Normocephalic, atraumatic. External ears without defect. Pupils equal, round, and reactive to light. Anicteric sclerae, moist conjunctivae, and no lid lag. Oropharynx free of erythema and cobble stoning with moist mucosa. Neck: Supple with full range of motion. No lymphadenopathy or thyromegaly. Cardiovascular: Regular rate and rhythm without murmurs, rubs, or gallops appreciated. Pulmonary: Clear to auscultation bilaterally without crackles, wheezes, or rhonchi. Normal respiratory effort with no use of accessory muscles. Abdomen: Abdominal binder in place but otherwise soft, bowel sounds present, mild tenderness to palpation around surgical site, nondistended. No hepatosplenomegaly or masses appreciated. Extremities: No clubbing, cyanosis, or edema. Skin: Normal temperature, turgor, and texture; no rash, ulcers, or subcutaneous nodules appreciated. Neurological: Cranial nerves grossly intact. Psychiatric: Normal mood and affect. Alert and oriented to person, place, and t hilda. Objective Labs Result Diagrams: 06/13/19 05:20 06/13/19 05:20 Labs: Laboratory Results - last 24 hr 06/13/19 06/13/19 06/13/19 05:20 05:20 05:20 WBC 14.3 H RBC 3.80 L Hgb 11.9 L Hct 35.4 L MCV 93.0 MCH 31.3 MCHC 33.7 RDW 14.0 Plt Count 348 Neut % (Auto) 86.2 H Lymph % (Auto) 4.3 L [place] % (Auto) 7.0 Eos % (Auto) 2.0 Baso % (Auto) 0.5 Neut # (Auto) 14851 H Lymph # (Auto) 600 L [place] # (Auto) 1000 H Eos # (Auto) 300 Baso # (Auto) 100 Sodium 137 Potassium 4.0 Chloride 104 Carbon Dioxide 24 BUN 31 H Creatinine 1.60 H Estimated GFR 42.7 L BUN/Creatinine Ratio 19.4 Glucose 181 H Calcium 8.4 Magnesium 1.7 Assessment & Plan Assessment & Plan narrative: Pedro Frye is a 74-year-old male with past medical history significant for CAD status post AICD, hypertension, hyperlipidemia, diabetes mellitus type 2, insulin using, and hypothyroidism who presented with severe abdominal pain and distension. In the ED, he had a CT which showed a mid abdominal abscess which created an SBO per surgery. He went to the OR on 06/10/2019 and underwent an exploratory laparotomy with mid jejunal small bowel resection with primary anastomosis extensive abdominal lavage. Medicine team was consulted for management of including CAD and diabetes mellitus type 2. 1. Severe diffuse peritonitis with perforated Meckel's diverticulum status post exploratory laparotomy, extensive peritoneal lavage, and small-bowel resection, present on admission. Active. -Continue postoperative management including pain, DVT prophylaxis, and antibiotic treatment per primary surgical team. -Continue to advance diet to transitional then carbohydrate/heart healthy diet as tolerated. 2. Diabetes mellitus type 2, insulin using, present on admission. Stable. -Hemoglobin A1c 8.0% indicative of fair glycemic control. -Held metformin. -Continue ACHS blood glucose checks and high-dose correctional scale insulin. Goal blood glucose 140-180. -Continue Lantus increased to 20 units daily at bedtime and will titrate up to home dose of 23 units at bedtime as beige in is tolerating advancement of diet. -Continue to advance diet to transitional then carbohydrate/heart healthy diet as tolerated. 3. MADHU on CKD stage III, present on admission. Resolving. -Secondary to ATN from hypermetabolic state with acute infection and decreased PO intake. -Baseline creatinine unknown. Initial creatinine 1.3 then increased to 2.3 now trending down at 1.6. -Continued IV fluids until adequately hydrated then discontinued. -Avoid nephrotoxic agents and optimize renal perfusion. Initially held lisinopril then restarted yesterday as below. -Continue to monitor creatinine closely. 4. Coronary artery disease, present on admission. Stable. -Patient was at increased risk for cardiac complications after urgent surgical interventions. Patient denies chest pain or ACS symptoms. Discontinue telemetry as patient is no longer septic. -Continue atorvastatin 40 mg daily and metoprolol succinate 50 mg daily. 5. Hypothyroidism, chronic, present on admission. Stable. -TSH is slightly elevated at 6.64, with normal free T4. This may be indicative of sick euthyroid. He has no other symptoms at this time. Continue his current home dose of levothyroxine and he should have repeat thyroid function testing per PCP in 4-6 weeks. -Continue home levothyroxine 75 mcg daily. 6. Hypertension, chronic, present on admission. Stable. -Continue metoprolol succinate 50 mg daily and lisinopril 20 mg daily. Code: Full code. Surrogate decision maker is the patient's . DVT prophylaxis: SQ Heparin Thank you for this most interesting consult. Medicine team will continue to follow along with you. Quality VTE Deep Vein Thrombosis/Pulmonary Embolism Present on Admission: No
--- NOTE | 2019-06-13 16:07 | PC.NURSE ---
Addendum entered by Angelic Carrero R.N. 06/13/19 23:08: Pt's latest BP 166/74. Elevated earlier in shift after ambulation and activity. Original Note: Pt up and walking at change of shift. In shower currently, no c/o pain, smiling. Will assess once bath complete.
[2019-06-13] MEDS: DOCUSATE 100 MG CAPSULE PO (21:33)
[2019-06-13] MEDS: LORazepam 1 MG TABLET PO (21:33)
[2019-06-13] MEDS: INSULIN GLARGINE 100 UNIT/ML 3ML PEN 20 UNIT SUBCUT (21:35)
[2019-06-14] VITALS (23 sets, daily range): BP systolic 137–199; BP diastolic 65–96; PULSE 81–94; RESP 15–20; TEMP 36.2–37.4; O2SAT 93–98
[2019-06-14] MEDS: PIPERACILLIN-TAZO 3.375 GM/50 ML FROZ.PIGGY IV ×5 (00:51→23:50)
[2019-06-14 04:47] LABS: Add Manual Diff / Slide Review NO; Basophils Absolute Auto 0 /uL (0-100); Basophils Percent Auto 0.4 % (0-2); Eosinophils Absolute Auto 200 /uL (0-450); Eosinophils Percent Auto 2.4 % (2-4); Hematocrit 34.4 % (41-53); Hemoglobin 11.5 g/dL (13.5-17.5); Lymphocytes Absolute Auto 600 /uL (1100-4500); Lymphocytes Percent Auto 6.2 % (25-40); Mean Corpuscular HGB Conc 33.3 % (30-36); Mean Corpuscular Hemoglobin 31.1 PG (26-34); Mean Corpuscular Volume 93.4 fL (80-100); Monocytes Absolute Auto 900 /uL (0-900); Monocytes Percent Auto 9.2 % (3-14); Neutrophils Absolute Auto 8100 /uL (1500-7000); Neutrophils Percent Auto 81.8 % (50-75); Platelet Count 314 X10^3/uL (150-400); Red Blood Cell Count 3.69 X10^6/uL (4.5-5.9); Red Cell Distribution Width 13.7 % (11.6-14.8); White Blood Cell Count 9.9 X10^3/uL (4.5-11.0)
[2019-06-14 04:54] LABS: Magnesium 1.6 mg/dL (1.6-2.3)
[2019-06-14 04:55] LABS: BUN Creatinine Ratio 18.7 (6-22); Blood Urea Nitrogen 28 mg/dL (9-20); Calcium 8.3 mg/dL (8.4-10.2); Carbon Dioxide 27 mmol/L (22-32); Chloride 106 mmol/L (98-107); Glucose 180 mg/dL (80-110); HEMOLYSIS < 15 (0-50); Sodium 139 mmol/L (137-145)
[2019-06-14] MEDS: HYDRALAZINE 20 MG/ML VIAL 10 MG IV ×2 (05:46→17:25)
[2019-06-14] MEDS: LEVOTHYROXINE 75 MCG TABLET PO (05:46)
[2019-06-14] MEDS: METOCLOPRAMIDE 10 MG/2 ML INJ IV ×3 (05:47→20:39)
[2019-06-14] MEDS: SODIUM CHLORIDE 0.9% FLUSH 10 ML IV ×3 (05:47→20:37)
--- NOTE | 2019-06-14 06:28 | PC.NURSE ---
Screen Tender Note-Patient is drowsy and slow to moving but oriented x3. Denies pain or nausea. Medicated with prn IV Hydralizine per prn order. Marcela MONTALVO informed of BP 192/96 in am. PO Hydralizine that was ordered as 1x dose not available in night pharmacy.
[2019-06-14] MEDS: lisinopriL 20 MG TABLET PO (08:58)
[2019-06-14] MEDS: HEPARIN 5,000 UNIT/ML VIAL 5000 UNIT SUBCUT ×2 (08:58→20:36)
[2019-06-14] MEDS: ATORVASTATIN 20 MG TABLET 40 MG PO (08:58)
[2019-06-14] MEDS: SIMETHICONE 80 MG TABLET PO ×4 (08:58→20:37)
[2019-06-14] MEDS: DOCUSATE 100 MG CAPSULE PO ×2 (08:58→20:39)
[2019-06-14] MEDS: METOPROLOL ER 50 MG TABLET PO (08:58)
[2019-06-14] MEDS: raNITIdine 150 MG CAPSULE PO ×2 (08:58→20:39)
[2019-06-14] MEDS: polyethylene glycoL 3350 17 GM POWD.PACK PO (08:58)
[2019-06-14] MEDS: PANTOPRAZOLE 40 MG VIAL IV (08:58)
[2019-06-14] MEDS: INSULIN ASPART 100 UNIT/ML INSULN PEN SUBCUT ×4 (08:59→20:57)
[2019-06-14] MEDS: FUROSEMIDE 20 MG/2 ML VIAL 10 MG IV (09:34)
--- NOTE | 2019-06-14 09:48 | PM.PN.1 ---
Subjective Subjective Date Patient Seen: 06/14/19 Interval history: Pedro Frye is a 74-year-old male with past medical history significant for CAD status post AICD, hypertension, hyperlipidemia, diabetes mellitus type 2, insulin using, and hypothyroidism who presented with severe abdominal pain and distension. In the ED, he had a CT which showed a mid abdominal abscess which created an SBO per surgery. He went to the OR on 06/10/2019 and underwent an exploratory laparotomy with mid jejunal small bowel resection with primary anastomosis extensive abdominal lavage. Medicine team was consulted for management of including CAD and diabetes mellitus type 2. The patient is resting comfortably in bedside chair. His blood pressure was elevated overnight which was treated. He continues to be hypertensive this morning and he is receiving his normal antihypertensives and in addition plan to diurese with furosemide 10 mg IV x1. He has no complaints and reports he is doing well and eager to return home. He is passing flatus and has had several small BMs. He is tolerating advancement of his diet. He denies headache, chest pain, shortness of breath, abdominal pain, nausea, vomiting, fever, chills, dysuria, diarrhea or constipation. He is voiding and eliminating without difficulty. He is up ambulating independently. Exam Vital Signs (past 8 hours): - 06/14/19 04:30 06/14/19 05:46 06/14/19 08:00 Temperature 98.8 F 97.5 F L Pulse Rate 94 H 94 H 88 Respiratory Rate 18 15 Blood Pressure 193/90 H 192/96 H 199/89 H Pulse Oximetry 95 95 06/14/19 08:01 Temperature Pulse Rate Respiratory Rate Blood Pressure Pulse Oximetry 96 Oxygen Delivery Method Room Air Oxygen Flow Rate 0 Narrative Exam Narrative: General: Elderly gentleman sitting in bedside chair and in no acute distress, well-developed, well-nourished, appropriately interactive. HEENT: Normocephalic, atraumatic. External ears without defect. Pupils equal, round, and reactive to light. Anicteric sclerae, moist conjunctivae, and no lid lag. Oropharynx free of erythema and cobble stoning with moist mucosa. Neck: Supple with full range of motion. No lymphadenopathy or thyromegaly. Cardiovascular: Regular rate and rhythm without murmurs, rubs, or gallops appreciated. Pulmonary: Clear to auscultation bilaterally without crackles, wheezes, or rhonchi. Normal respiratory effort with no use of accessory muscles. Abdomen: Soft, midline incision covered with dressing C/D/I without surrounding erythema or edema, bowel sounds present, no tenderness to palpation, nondistended. No hepatosplenomegaly or masses appreciated. Extremities: No clubbing, cyanosis, or edema. Skin: Normal temperature, turgor, and texture; no rash, ulcers, or subcutaneous nodules appreciated. Neurological: Cranial nerves grossly intact. Psychiatric: Normal mood and affect. Alert and oriented to person, place, and time. Objective Labs Result Diagrams: 06/14/19 04:35 06/14/19 04:35 Labs: Laboratory Results - last 24 hr 06/14/19 06/14/19 06/14/19 04:35 04:35 04:35 WBC 9.9 RBC 3.69 L Hgb 11.5 L Hct 34.4 L MCV 93.4 MCH 31.1 MCHC 33.3 RDW 13.7 Plt Count 314 Neut % (Auto) 81.8 H Lymph % (Auto) 6.2 L [place] % (Auto) 9.2 Eos % (Auto) 2.4 Baso % (Auto) 0.4 Neut # (Auto) 8100 H Lymph # (Auto) 600 L [place] # (Auto) 900 Eos # (Auto) 200 Baso # (Auto) 0 Sodium 139 Potassium 4.0 Chloride 106 Carbon Dioxide 27 BUN 28 H Creatinine 1.50 H Estimated GFR 46.0 L BUN/Creatinine Ratio 18.7 Glucose 180 H Calcium 8.3 L Magnesium 1.6 Assessment & Plan Assessment & Plan narrative: Pedro Frye is a 74-year-old male with past medical history significant for CAD status post AICD, hypertension, hyperlipidemia, diabetes mellitus type 2, insulin using, and hypothyroidism who presented with severe abdominal pain and distension. In the ED, he had a CT which showed a mid abdominal abscess which created an SBO per surgery. He went to the OR on 06/10/2019 and underwent an exploratory laparotomy with mid jejunal small bowel resection with primary anastomosis extensive abdominal lavage. Medicine team was consulted for management of including CAD and diabetes mellitus type 2. 1. Severe diffuse peritonitis with perforated Meckel's diverticulum status post exploratory laparotomy, extensive peritoneal lavage, and small-bowel resection, present on admission. Active. -Continue postoperative management including pain, DVT prophylaxis, and antibiotic treatment per primary surgical team. -Continue to advance diet to transitional then carbohydrate/heart healthy diet as tolerated. 2. Diabetes mellitus type 2, insulin using, present on admission. Stable. -Hemoglobin A1c 8.0% indicative of fair glycemic control. -Held metformin. -Continue ACHS blood glucose checks and high-dose correctional scale insulin. Goal blood glucose 140-180. -Continue Lantus increased to home dose of 23 units daily at bedtime as patient is tolerating advancement of diet. -Continue to advance diet to transitional then carbohydrate/heart healthy diet as tolerated. 3. MADHU on CKD stage III, present on admission. Resolving. -Secondary to ATN from hypermetabolic state with acute infection and decreased PO intake. -Baseline creatinine unknown. Initial creatinine 1.3 then increased to 2.3 now trending down at 1.5. -Continued IV fluids until adequately hydrated then discontinued. -Avoid nephrotoxic agents and optimize renal perfusion. Initially held lisinopril then restarted yesterday as below. -Continue to monitor creatinine closely. 4. Coronary artery disease, present on admission. Stable. -Patient was at increased risk for cardiac complications after urgent surgical interventions. Patient denies chest pain or ACS symptoms. -Continue atorvastatin 40 mg daily and metoprolol succinate 50 mg daily. 5. Hypothyroidism, chronic, present on admission. Stable. -TSH is slightly elevated at 6.64, with normal free T4. This may be indicative of sick euthyroid. He has no other symptoms at this time. Continue his current home dose of levothyroxine and he should have repeat thyroid function testing per PCP in 4-6 weeks. -Continue home levothyroxine 75 mcg daily. 6. Hypertension, chronic, present on admission. Stable. -Continue metoprolol succinate 50 mg daily and lisinopril 20 mg daily. -Received furosemide 10 mg IV x1 to diurese excessive IV fluids previously administered for resuscitation. Code: Full code. Surrogate decision maker is the patient's . DVT prophylaxis: SQ Heparin Thank you for this most interesting consult. Medicine team will sign off at this time but feel free to contact us if further assistance is needed. Quality VTE Deep Vein Thrombosis/Pulmonary Embolism Present on Admission: No
[2019-06-14] MEDS: LABETALOL 20 MG/4 ML SYRINGE 10 MG IV ×2 (10:19→15:42)
--- NOTE | 2019-06-14 11:24 | PM.PN.1 ---
Subjective Subjective Date Patient Seen: 06/14/19 Time Patient Seen: 11:24 Interval history: Postop day 4 for 74-year-old man who came in with severe generalized peritonitis perforated Meckel's diverticulum. He underwent small-bowel resection and aggressive peritoneal lavage. Subjectively he feels much better is ambulating he has actually had a bowel movement is passing some flatus tolerating a soft diet and afebrile Exam Vital Signs (past 8 hours): - 06/14/19 04:30 06/14/19 05:46 06/14/19 08:00 Temperature 98.8 F 97.5 F L Pulse Rate 94 H 94 H 88 Respiratory Rate 18 15 Blood Pressure 193/90 H 192/96 H 199/89 H Pulse Oximetry 95 95 06/14/19 08:01 06/14/19 10:00 06/14/19 10:06 Temperature Pulse Rate Respiratory Rate Blood Pressure 186/94 H 186/94 H Pulse Oximetry 96 06/14/19 10:51 Temperature Pulse Rate Respiratory Rate Blood Pressure 159/80 H Pulse Oximetry Oxygen Delivery Method Room Air Oxygen Flow Rate 0 Narrative Exam Narrative: Patient is afebrile alert and oriented blood pressure has been running high but is coming down with additional treatment Abdomen slightly distended Incision is healing well with no overt signs of infection. Eduin drain is producing a scant amount of serous fluid Patient still has significant ankle edema secondary to his aggressive fluid resuscitation. Objective Labs Result Diagrams: 06/14/19 04:35 06/14/19 04:35 Labs: Laboratory Results - last 24 hr 06/14/19 06/14/19 06/14/19 04:35 04:35 04:35 WBC 9.9 RBC 3.69 L Hgb 11.5 L Hct 34.4 L MCV 93.4 MCH 31.1 MCHC 33.3 RDW 13.7 Plt Count 314 Neut % (Auto) 81.8 H Lymph % (Auto) 6.2 L [place] % (Auto) 9.2 Eos % (Auto) 2.4 Baso % (Auto) 0.4 Neut # (Auto) 8100 H Lymph # (Auto) 600 L [place] # (Auto) 900 Eos # (Auto) 200 Baso # (Auto) 0 Sodium 139 Potassium 4.0 Chloride 106 Carbon Dioxide 27 BUN 28 H Creatinine 1.50 H Estimated GFR 46.0 L BUN/Creatinine Ratio 18.7 Glucose 180 H Calcium 8.3 L Magnesium 1.6 Assessment & Plan Assessment & Plan narrative: Patient is recovering from severe peritonitis small bowel perforation and small-bowel resection. We will continue IV antibiotic therapy. Continue to slowly advance his diet. Patient is ambulating. He is on subcu heparin for DVT prophylaxis. Serum creatinine is plateaued at 1.5. Patient is making a good volume of urine. Quality VTE Deep Vein Thrombosis/Pulmonary Embolism Present on Admission: No
[2019-06-14] MEDS: FUROSEMIDE 20 MG/2 ML VIAL IV (14:21)
--- NOTE | 2019-06-14 14:39 | PC.NURSE ---
Day Shift Note Pt AOx, pleasant, tired. Currently up to chair sleeping. During shift ambulated in etienne x 2. Denies pain and nausea. YUKI drain removed. Labetalol IV x 1 dose for elevated BP refer to eMAR.
--- NOTE | 2019-06-14 16:04 | CM.DPC ---
DCP Cont: Plan is for patient to go home when able to tolerate diet. Surgeon will be in to see patient. No needs at this time. P: DCP to continue to follow while here in the hospital. Shila Harvey RN/Digital Assistant
--- NOTE | 2019-06-14 17:18 | PC.NURSE ---
Addendum entered by Angelic Carrero R.N. 06/14/19 19:23: Dr Mcduffie called regarding pt report of LLE with pain/dragan horse: in left calf. +pulses to BLE, +2-3 pitting edema to BLE continues. no change. +CSM. Will put in for venous duplex study to r/o DVT tomorrow per DR order verbal over phone. Pt continues on SQ heparin. BP controlled post hydralazine administration at 154/70 now. Original Note: Pt with SBP 193/88 post IV Labetolol administration. HR 85. Dr. Mcduffie notified. Will begin IV Hydralazine now. Pt asymptomatic.
[2019-06-14] MEDS: INSULIN GLARGINE 100 UNIT/ML 3ML PEN 23 UNIT SUBCUT (20:56)
[2019-06-14] MEDS: ACETAMINOPHEN 325 MG TABLET 650 MG PO (21:04)
[2019-06-15] VITALS (16 sets, daily range): BP systolic 138–190; BP diastolic 65–84; PULSE 81–97; RESP 18–19; TEMP 36.3–36.7; O2SAT 93–98
[2019-06-15] MEDS: HYDRALAZINE 20 MG/ML VIAL 10 MG IV ×3 (00:41→21:28)
--- NOTE | 2019-06-15 01:54 | PC.NURSE ---
Addendum entered by Heidy Henning R.N. 06/15/19 06:52: Pt declining Reglan. States no nausea and had three BM's during lieutenant shift supervisor. Addendum entered by Heidy Henning R.N. 06/15/19 02:23: 0215 Pt OOB to the bathroom with standby assist. Pt is steady on feet and had moderate to large BM. Original Note: [id number] Pt alert and oriented. Pt denies pain with some abd distention. Pt states that he is noting no pain in either LE at this time. Pt ambulating in etienne with stand by assist. Pt requested to sit OOB in recliner after ambulation.
[2019-06-15 04:56] LABS: Add Manual Diff / Slide Review NO; Basophils Absolute Auto 100 /uL (0-100); Basophils Percent Auto 0.4 % (0-2); Eosinophils Absolute Auto 300 /uL (0-450); Eosinophils Percent Auto 2.4 % (2-4); Hematocrit 36.1 % (41-53); Hemoglobin 12.1 g/dL (13.5-17.5); Lymphocytes Absolute Auto 800 /uL (1100-4500); Lymphocytes Percent Auto 5.9 % (25-40); Mean Corpuscular HGB Conc 33.4 % (30-36); Mean Corpuscular Volume 92.9 fL (80-100); Monocytes Absolute Auto 1300 /uL (0-900); Monocytes Percent Auto 10.4 % (3-14); Neutrophils Absolute Auto 10400 /uL (1500-7000); Neutrophils Percent Auto 80.9 % (50-75); Platelet Count 375 X10^3/uL (150-400); Red Blood Cell Count 3.89 X10^6/uL (4.5-5.9); Red Cell Distribution Width 13.9 % (11.6-14.8); White Blood Cell Count 12.8 X10^3/uL (4.5-11.0)
[2019-06-15 05:06] LABS: BUN Creatinine Ratio 16.7 (6-22); Blood Urea Nitrogen 25 mg/dL (9-20); Calcium 8.7 mg/dL (8.4-10.2); Carbon Dioxide 32 mmol/L (22-32); Chloride 102 mmol/L (98-107); Glucose 168 mg/dL (80-110); HEMOLYSIS < 15 (0-50); Magnesium 1.5 mg/dL (1.6-2.3); Potassium 3.9 mmol/L (3.4-5.1); Sodium 140 mmol/L (137-145)
[2019-06-15] MEDS: PIPERACILLIN-TAZO 3.375 GM/50 ML FROZ.PIGGY IV ×3 (05:29→18:35)
[2019-06-15] MEDS: LEVOTHYROXINE 75 MCG TABLET PO (06:04)
[2019-06-15] MEDS: INSULIN ASPART 100 UNIT/ML INSULN PEN SUBCUT ×4 (08:43→21:27)
[2019-06-15] MEDS: ATORVASTATIN 20 MG TABLET 40 MG PO (08:45)
[2019-06-15] MEDS: SIMETHICONE 80 MG TABLET PO ×4 (08:45→21:26)
[2019-06-15] MEDS: lisinopriL 20 MG TABLET PO (08:45)
[2019-06-15] MEDS: raNITIdine 150 MG CAPSULE PO ×2 (08:45→21:26)
[2019-06-15] MEDS: HEPARIN 5,000 UNIT/ML VIAL 5000 UNIT SUBCUT ×2 (08:46→21:25)
[2019-06-15] MEDS: PANTOPRAZOLE 40 MG VIAL IV (08:46)
[2019-06-15] MEDS: METOPROLOL ER 50 MG TABLET PO (08:46)
[2019-06-15] MEDS: SODIUM CHLORIDE 0.9% FLUSH 10 ML IV ×2 (09:33→21:27)
--- NOTE | 2019-06-15 10:45 | PC.NURSE ---
NO IMAGING ORDER PLACED FOR DVT R/O - IT WAS A BEDSIDE NURSING ORDER- THIS WA NOT PERFORMED PT HAS PALPABLE PEDAL PULSES AND NO REDNESS/TENDERNESS OR SWELLING NOTE- AMBULATING ABOUT AD KRAIG AND DENIES ANY SOB
--- NOTE | 2019-06-15 11:31 | DI.US.S_ITS ---
PROCEDURE: US PERIPH VENOUS LOW EXTREM BI INDICATIONS: RT LEG SWELLING, LT CALF PAIN TECHNIQUE: Real-time imaging, as well as color and pulse Doppler interrogation, were performed of the deep veins of both legs from the inguinal ligament to the popliteal fossa. COMPARISON: None. FINDINGS: Right: The common femoral, femoral and popliteal veins are normally compressible, and free of intraluminal thrombus. Color and pulse Doppler demonstrate normal phasic intravascular flow. There is normal augmentation response to distal compression maneuver. Left: The common femoral, femoral and popliteal veins are normally compressible, and free of intraluminal thrombus. Color and pulse Doppler demonstrate normal phasic intravascular flow. There is normal augmentation response to distal compression maneuver. Incidental note is made of the presence of a small left Galvan's cyst measuring 3.4 x 1.2 x 1.6 cm. IMPRESSION: Negative bilateral duplex ultrasound for lower extremity DVT. Incidental left Galvan's cyst. Dictated by: Vinod Handley M.D. on 06/15/2019 at 13:01 Approved by: Vinod Handley M.D. on 06/15/2019 at 13:02
--- NOTE | 2019-06-15 20:36 | PM.PNPO.1 ---
Subjective Subjective Date Patient Seen: 06/15/19 Time Patient Seen: 12:00 Interval history: The patient is a gentleman who had a large amount of pus in his abdomen related to perforated Meckel's diverticulum. He was hoping to go home today. He is eating okay. Passing gas. Exam Vital Signs (past 8 hours): - 06/15/19 13:55 06/15/19 14:00 06/15/19 15:30 Temperature 97.3 F L Pulse Rate 81 Respiratory Rate 19 Blood Pressure 156/73 H 169/77 H Pulse Oximetry 95 06/15/19 19:47 Temperature 97.7 F Pulse Rate 82 Respiratory Rate 18 Blood Pressure 190/84 H Pulse Oximetry Oxygen Delivery Method Room Air Oxygen Flow Rate 0 Narrative Exam Narrative: Lungs are clear to auscultation. Heart regular rate and rhythm no murmur gallop. Abdomen is soft. He has drainage of serous material from his lower part of his wound. No cellulitis yet seen. Objective Labs Result Diagrams: 06/15/19 04:40 06/15/19 04:40 Labs: Laboratory Results - last 24 hr 06/15/19 06/15/19 06/15/19 04:40 04:40 04:40 WBC 12.8 H RBC 3.89 L Hgb 12.1 L Hct 36.1 L MCV 92.9 MCH 31.0 MCHC 33.4 RDW 13.9 Plt Count 375 Neut % (Auto) 80.9 H Lymph % (Auto) 5.9 L [place] % (Auto) 10.4 Eos % (Auto) 2.4 Baso % (Auto) 0.4 Neut # (Auto) 07234 H Lymph # (Auto) 800 L [place] # (Auto) 1300 H Eos # (Auto) 300 Baso # (Auto) 100 Sodium 140 Potassium 3.9 Chloride 102 Carbon Dioxide 32 BUN 25 H Creatinine 1.50 H Estimated GFR 46.0 L BUN/Creatinine Ratio 16.7 Glucose 168 H Calcium 8.7 Magnesium 1.5 L Assessment & Plan Post-op Postoperative Procedures: Procedures Operation Date: 06/10/19 07:00 Actual Procedures Side Surgeon p Exploratory Laparotomy GEN,SMALL BOWEL RESECTION Not Applicable Leighton Mcduffie MD Postoperative status narrative: Doing okay postop. This is only his 5th day of IV antibiotics. I would like to repeat his CBC a procalcitonin. His CBC is up right now. Postoperative plan narrative: Will continue IV antibiotics. He is disappointed that I am not discharging him because he feels so well but given his rise in his white count and the preponderance of segs I think it prudent to give him additional IV antibiotics and repeat his labs. May be able go home tomorrow with additional p.o. antibiotics Quality VTE Deep Vein Thrombosis/Pulmonary Embolism Present on Admission: No
[2019-06-15] MEDS: DOCUSATE 100 MG CAPSULE PO (21:26)
[2019-06-15] MEDS: INSULIN GLARGINE 100 UNIT/ML 3ML PEN 23 UNIT SUBCUT (21:27)
[2019-06-16] VITALS (9 sets, daily range): BP systolic 149–189; BP diastolic 70–79; PULSE 84–91; RESP 16–18; TEMP 35.9–36.4; O2SAT 95–98
[2019-06-16] MEDS: PIPERACILLIN-TAZO 3.375 GM/50 ML FROZ.PIGGY IV ×4 (00:14→17:01)
[2019-06-16 05:11] LABS: Add Manual Diff / Slide Review NO; Basophils Absolute Auto 100 /uL (0-100); Basophils Percent Auto 0.7 % (0-2); Eosinophils Absolute Auto 400 /uL (0-450); Eosinophils Percent Auto 2.9 % (2-4); Hematocrit 36.3 % (41-53); Hemoglobin 12.1 g/dL (13.5-17.5); Lymphocytes Absolute Auto 800 /uL (1100-4500); Lymphocytes Percent Auto 6.6 % (25-40); Mean Corpuscular HGB Conc 33.2 % (30-36); Mean Corpuscular Hemoglobin 30.8 PG (26-34); Mean Corpuscular Volume 92.7 fL (80-100); Monocytes Absolute Auto 1100 /uL (0-900); Monocytes Percent Auto 8.8 % (3-14); Neutrophils Absolute Auto 10200 /uL (1500-7000); Platelet Count 421 X10^3/uL (150-400); Red Blood Cell Count 3.92 X10^6/uL (4.5-5.9); Red Cell Distribution Width 13.7 % (11.6-14.8); White Blood Cell Count 12.5 X10^3/uL (4.5-11.0)
[2019-06-16] MEDS: LEVOTHYROXINE 75 MCG TABLET PO (05:25)
[2019-06-16] MEDS: HYDRALAZINE 20 MG/ML VIAL 10 MG IV (05:28)
--- NOTE | 2019-06-16 05:43 | PC.NURSE ---
pt doing well- disappointed by lack of discharge to home but is calm and cooperative- iv zosyn continues and pt reports no pain
[2019-06-16 06:24] LABS: Procalcitonin 0.72 ng/mL (<0.5)
[2019-06-16] MEDS: SIMETHICONE 80 MG TABLET PO ×3 (08:43→17:01)
[2019-06-16] MEDS: METOPROLOL ER 50 MG TABLET PO (08:43)
[2019-06-16] MEDS: lisinopriL 20 MG TABLET PO (08:44)
[2019-06-16] MEDS: ATORVASTATIN 20 MG TABLET 40 MG PO (08:44)
[2019-06-16] MEDS: raNITIdine 150 MG CAPSULE PO (08:44)
[2019-06-16] MEDS: HEPARIN 5,000 UNIT/ML VIAL 5000 UNIT SUBCUT (08:45)
[2019-06-16] MEDS: INSULIN ASPART 100 UNIT/ML INSULN PEN SUBCUT ×2 (08:49→12:06)
[2019-06-16] MEDS: SODIUM CHLORIDE 0.9% FLUSH 10 ML IV ×2 (08:54→12:07)
[2019-06-16] MEDS: PANTOPRAZOLE 40 MG VIAL IV (08:54)
[2019-06-16] MEDS: METOCLOPRAMIDE 10 MG/2 ML INJ IV (14:19)
--- NOTE | 2019-06-16 16:32 | PC.NURSE ---
Addendum entered by Landy Edwards R.N. 06/16/19 18:29: Pt education provided about the importance of monitoring blood sugars and drainage to dressing and recheck for 1 week. Pt is up and ambulating waiting for w/c ride out. Will follow up as directed. Diverticulitis diet education given Addendum entered by Landy Edwards R.N. 06/16/19 16:50: Dr Kruse into see Pt, dd/c orders obtained, Flagyl and levaquin from [facility], to be restarted on d/c home. No need for pain meds PO since Saturday, 06/13. Original Note: PM Shift Pt is anxious to get d/c orders, up ambulating in etienne indep. Afebrile, VSS, slightly hypertensive, as has been much of his stay. NO PRN hydralazine given. Incision checked, it is CDI, and was changed this AM by Dr Kruse per Pt. Will contact to address pending d/c plans.
--- NOTE | 2019-06-16 16:57 | PM.DS.1 ---
History of Present Illness History of Present Illness Date Patient Seen: 06/16/19 Time Patient Seen: 16:57 Chief complaint: Lower Abd Pain Narrative: Patient is a gentleman admitted after outpatient therapy for diverticulitis failed. He was found on CT to have evidence perforation was taken the operating room Discharge Providers Provider Date of admission: 06/10/19 00:46 Discharge Date: 06/16/19 Primary care physician: Ace Tompkins Rai, DO Consults: 06/10/19 10:15 Consult to Discharge Planning Routine Comment: 06/10/19 10:22 Consult to Hospitalist Service Routine Comment: Consulting Provider: Alejandro Francisco Reason for consultation: diabetes/cardiac history Discharge provider: Ender Walden MD Summary Hospital Course Discharge Diagnosis: Perforated Meckel's diverticulitis acute with peritonitis Poorly controlled diabetes mellitus acute poor control chronic diabetes Hypothyroidism chronic Elevated cholesterol chronic Hypertension chronic essential Hospital Course: Patient underwent resection of small bowel with primary anastomoses. He had Meckel's diverticulitis with 2 separate lesions. His postoperative course was fairly smooth. A drain had been placed at the time of operation was removed 2 days prior to his discharge. He was afebrile for several days had return of bowel function and was tolerating p.o. well. He did have persistent drainage of a small amount of serous fluid from his lower incisional site. There was no unusual tenderness and no redness or cellulitis however of the area. The patient was discharged tolerating a diabetic diet his sugars were not well controlled during his hospitalization but I suspect that will improve when he is at home on his regular diet. He has Flagyl and Levaquin at home and he should continue those. He will be scheduled to see me back in the office. He was instructed if he develops fever chills night sweats or redness of this wound he should call immediately as he may need to be readmitted. Status at Discharge Cognitive/behavioral status at discharge: oriented Functional status at discharge: independent ambulation Overall status at discharge: patient is progressing back to baseline Exam Vital Signs (past 8 hours): - 06/16/19 12:09 06/16/19 15:00 Temperature 97.6 F Pulse Rate 84 Respiratory Rate 18 Blood Pressure 149/76 H Pulse Oximetry 95 98 Oxygen Delivery Method Room Air Oxygen Flow Rate 0 Narrative Exam Narrative: Lungs are clear to auscultation with excellent effort. Heart regular rate and rhythm without murmur gallop. Abdomen is soft there is no obvious tenderness no redness his wound is stable together there is yellow drainage that does not appear to be purulence or succus on his gauze.(he was advised to keep this covered with dry gauze until it stops draining) Objective Labs Result Diagrams: 06/16/19 04:50 06/15/19 04:40 Labs: Laboratory Results - last 24 hr 06/16/19 06/16/19 04:50 04:50 WBC 12.5 H RBC 3.92 L Hgb 12.1 L Hct 36.3 L MCV 92.7 MCH 30.8 MCHC 33.2 RDW 13.7 Plt Count 421 H Neut % (Auto) 81.0 H Lymph % (Auto) 6.6 L [place] % (Auto) 8.8 Eos % (Auto) 2.9 Baso % (Auto) 0.7 Neut # (Auto) 30424 H Lymph # (Auto) 800 L [place] # (Auto) 1100 H Eos # (Auto) 400 Baso # (Auto) 100 Procalcitonin 0.72 H Discharge Plan Discharge Plan Patient Disposition: Home Discharge orders & Medications Prescriptions: Continued atorvastatin 40 mg tablet 40 mg PO DAILY RF: 0 metoprolol succinate 50 mg tablet extended release 24 hr 50 mg PO DAILY RF: 0 levothyroxine 75 mcg tablet 75 mcg PO QAM RF: 0 insulin glargine 100 unit/mL Solution 23 unit SUBCUT BEDTIME RF: 0 metronidazole [Flagyl] 500 mg Tablet 500 mg PO TID RF: 0 levofloxacin [Levaquin] 500 mg Tablet 500 mg PO DAILY RF: 0 insulin lispro 100 unit/mL Insulin Pen 0 - 12 unit SUBCUT TID RF: 0 insulin lispro 100 unit/mL Insulin Pen 0 - 5 unit SUBCUT BEDTIME RF: 0 metformin 500 mg tablet 500 mg PO BID RF: 0 lisinopril 20 mg Tablet 20 mg PO DAILY RF: 0 Follow up/Referrals: Ace Mccallum DO [Primary Care Provider] - Ender Walden MD [Physician] - 1 Week (Please call my office to schedule an appointment to see me in 1 week. If you need to reach a doctor call our office. If it is after hours listen to the entire message and you will be connected to the page mixing roll operator at the end of the message. They will call the doctor on-call.) Diet/Activity/Treatments Diet: Diet as Tolerated Diet comment: Diabetic Activity: Do not lift over 10 lb or strain for the next 6 weeks. You may walk. Skin/Wound/Dressing Care Report to your healthcare provider any signs of infection, such as:: chills, fever, night sweats, increased pain, unusual drainage and unusual redness Dressing: Keep a dry dressing on the lower half of your wound until all drainage ceases. You should change it daily. You may shower daily (remove dressing and then reapply after shower) but no pool or tub. Other wound treatment: Report red wound or increasing pain to your doctor. Visit Report/Discharge Packet Instructions: DI for Diverticulitis, How to Care for a Surgical Wound-[facility]: Wound Care Stand Alone Forms: Surgery Discharge Discharge Data Primary Care Provider: Ace Mccallum VTE Deep Vein Thrombosis/Pulmonary Embolism Present on Admission: No
== END 2019-06-16 18:32 | disposition home or self-care (01) | DRG 329 ==
LOC: ED 22:02 → AC 06-10 00:47 → ICU 06-10 09:27
PROVIDERS: Internal Medicine; Specialist; Admitting Provider Surgery; Emergency Provider Emergency Medicine; Family Provider Internal Medicine; PCP Family Medicine; Referring Provider Emergency Medicine; Visit Provider Surgery
PROC: 0DBA0ZZ Excision of Jejunum, Open Approach (ICD-10-PCS; CPT 49000; principal; 2019-06-10 07:00)
DX: Q43.0 Meckel's diverticulum (displaced) (hypertrophic) (principal); K65.1 Peritoneal abscess; N17.0 Acute kidney failure with tubular necrosis; I12.9 Hypertensive chronic kidney disease with stage 1 through stage 4 chronic kidney disease, or unspecified chronic kidney disease; E11.22 Type 2 diabetes mellitus with diabetic chronic kidney disease; N18.3 Chronic kidney disease, stage 3 (moderate); Z79.4 Long term (current) use of insulin; E03.9 Hypothyroidism, unspecified; E78.00 Pure hypercholesterolemia, unspecified; Z95.810 Presence of automatic (implantable) cardiac defibrillator; Z95.1 Presence of aortocoronary bypass graft; I25.10 Atherosclerotic heart disease of native coronary artery without angina pectoris
CPT/HCPCS: 36415; 51701; 74019; 74177; 80048; 80053; 81003; 81015; 82962; 83036; 83605; 83690; 83735; 84145; 84439; 84443; 85025; 85610; 85730; 87040; 87070; 87075; 87086; 87205; 87797; 93005; 93970; 94760; 94762; 96361; 96374; 96375; 96376; 99285; C9113; J0330; J0360; J1170; J1644; J1650; J1940; J2250; J2270; J2405; J2543; J2704; J2765; J3010; Q9967